=== PATIENT | female | born 1945 | race Caucasian/White ===

== ENCOUNTER 2017-11-22 09:13 | Outpatient (CLI) | payer MEDICARE, OTHER ==
[2017-11-22 10:21] LABS: Bilirubin Negative (Negative); Blood, Urine Negative (Negative); Clarity CLOUDY (Clear); Glucose, Urine (Dipstick) Negative (Negative); Leukocyte Moderate (Negative); Nitrite Negative (Negative); Protein, Urine (Dipstick) Trace mg/dL (Neg-Trace); Specific Gravity, Urine 1.023 (1.002-1.036); Urobilinogen 0.2 mg/dL (0.2-1.0)
[2017-11-22 10:23] LABS: Bacteria/HPF None Seen HPF (None Seen); Pathc Cast-AUWi Flag 1.76 (0-2.49)
[2017-11-22 10:27] LABS: Hyaline Casts/LPF 0-3 HYALINE CAST LPF (0-3 Hyaline); Renal Epithelial None Seen HPF (0-3); Transitional Epithelial NONE SEEN HPF (0-3)
[2017-11-22 10:39] LABS: Anion Gap 12 mmol/L (10-20); BUN (Urea Nitrogen) 14 mg/dL (9.8-20.1); Calc. Creatinine Clearance 0 mL/min (70-130); Calcium 8.4 mg/dL (7.8-10.44); Carbon Dioxide 30 mmol/L (23-31); Chloride 107 mmol/L (98-107); Estimated GFR-MDRD 70; Glucose 106 mg/dL (80-115); Potassium 4.8 mmol/L (3.5-5.1); Sodium 144 mmol/L (136-145)
--- NOTE | 2017-11-22 12:00 | CT ---
CT ABDOMEN AND PELVIS PERFORMED WITH AND WITHOUT CONTRAST ENHANCEMENT: History: Hematuria. History of UTIs. Hysterectomy history. Comparison: CT angio of the chest performed 11-12-12. FINDINGS: The reticular nodularity in the region middle lobe is similar to the prior examination. It is reporte dly a result of a previous microbacterial infection. The liver shows a subtle hypodensity within the dome which appears to represent a cyst, it is stable. The spleen shows some cortical scarring. Pancreas and gallbladder regions are unremarkable. Right and left adrenal glands and right and left kidneys are normal in size. There are no renal calcu li identified. No obstruction or mass. There is no significant periaortic or mesenteric adenopathy. CT OF PELVIS PERFORMED WITH CONTRAST ENHANCEMENT: The appendix region is unremarkable. Sigmoid diverticulosis is seen. Hysterectomy changes are seen. T he bladder is not fully distended. No filling defects are seen. No pelvic lymphadenopathy. IMPRESSION: 1. No evidence of renal calculi or mass. 2. Scarring in the right middle lobe. 3. Sigmoid diverticulosis. POS: [facility]
[2017-11-22] MEDS ORDERED: Iopamidol 370 76% 100 ML VIAL ONE (16:53)
== END 2017-11-22 09:14 | disposition home or self-care (01) ==
LOC: CT 09:13
PROVIDERS: ATTEND Urology
DX: Z51.81 Encounter for therapeutic drug level monitoring (principal); R31.0 Gross hematuria; Z87.448 Personal history of other diseases of urinary system; Z87.440 Personal history of urinary (tract) infections; Z79.01 Long term (current) use of anticoagulants
CPT/HCPCS: 36415; 74178; 80048; 81001; 87077; 87086; 88112

== ENCOUNTER 2018-06-21 05:42 | Inpatient (IN) | payer MEDICARE, OTHER ==
[2018-06-20 13:03] VITALS: BMI 24.8
--- NOTE | 2018-06-20 19:59 | HP ---
HISTORY OF PRESENT ILLNESS: This is a very pleasant 73-year-old female who reports to our office for 5 years of worsening back pain. The patient states that following her visit with us, she is going to get ISA and physical therapy, which has been helping for some time. She states that the last several months, she has been getting no benefit from injections or therapy, which she had in the past. The patient states that the pain starts in her low back travels across her glute hip and lateral thigh and then down into her anterior tibialis. The patient denies any numbness or tingling in the associated area. She denies any bowel or bladder dysfunction. The patient is taking a blood thinner due to a clot in 2013. Her pain level is an 8/10. She states that she is most comfortable in the afternoons if she walks and she needs to bend forward at her waist to relieve some of the pressure. When walking any length of time, she will lean over on the counter of the shopping cart or she will have to sit down. REVIEW OF SYSTEMS: Ten point review of systems has been completed and is negative other than stated above in the HPI. PAST MEDICAL HISTORY: Heart murmur, hypertension, lung disease, BEKA, asthma, fibromyalgia, DVT. PAST SURGICAL HISTORY: , heart bypass, elbow, rotator cuff knee, hysterectomy, breast biopsy. FAMILY HISTORY: Father is at age 75. Mother is at age 82 diagnosed with hypertension and heart disease. Siblings are alive and her children are alive. SOCIAL HISTORY: Patient is a nonsmoker, does not drink alcohol or use any other illicit drugs. She lives at home with her spouse. She is retired and they have two children. MEDICATIONS: Flonase, Claritin, ProAir, Premarin, cyanocobalamin, Integra, folic acid, atorvastatin calcium, Xarelto, calcium, TripleFlex, montelukast sodium, multivitamins, ranitidine, alprazolam, Lyrica, temazepam, tramadol, Celexa. ALLERGIES: PNEUMONIA VACCINE, SULFA. PHYSICAL EXAMINATION: GENERAL: Well-appearing, well-nourished, alert. NEUROLOGIC: Mental status, oriented to time, place and person. Normal attention span and concentration. Speech is spontaneous and fluent. Comprehension is intact. Content appropriate. Normal fund of knowledge. Cranial nerves: Pupils equal, round, reactive to light. Extraocular movements intact. Hearing intact. Motor: Muscle strength normal in lower extremities. Muscle tone and bulk normal in lower extremities, 5/5 bilateral strength in IP, KE, KF, DF, PF, EHL, no radiculopathy, negative SLR bilateral, rotation of bilateral hips normal. Tender to palpation at L4 and L5. Deep tendon reflexes 2+ bilaterally in the patella and ankle. Sensory to light touch intact. Gait and station sit to stand, slow normal gait. RESPIRATIONS: Normal work of breathing room air. SKIN: No rashes or lesions on exposed skin. PSYCHIATRIC: Normal mood and affect. IMAGING: MRI spondylolisthesis at L4-L5. ASSESSMENT AND PLAN: Spondylolisthesis of the lumbar region without myelopathy. Dr. Walker has offered a Lami [id number]. The patient will stop Xarelto one week prior to surgery. We have discussed the indications, risks, benefits, and alternatives of the expected result from surgery. The risks discussed included, but were not limited to bleeding, infection, CSF leak, nerve damage, weakness, incontinence, tonic clonic injury, arachnoiditis, paralysis, ventilator dependence, wheelchair dependence, loss of vision, hardware misplacement, cardiopulmonary complications of anesthesia or , long-term complications discussed included, but were not limited to degradation of surrounding disks and the need for further surgery. The patient states that she understands the risks and is willing to proceed with surgery. TISHA
[2018-06-21] MEDS ORDERED: Thrombin 5000 UNITS/5 ML VIAL ONE (06:31)
[2018-06-21] MEDS ORDERED: Sodium Chloride 0.9% 10 ML ONE (06:31)
[2018-06-21] MEDS ORDERED: Bupivacaine HCl 0.5%/Epinephrine 1:200,000/PF 30 ml Vial ONE (06:31)
[2018-06-21 06:38] LABS: Hemoglobin 13.5 g/dL (12.0-16.0); Mean Corpuscular HGB CONC 33.5 g/dL (32.0-36.0); Mean Corpuscular Hemoglobin 31.3 pg (27.0-31.0); Mean Corpuscular Volume 93.3 fL (78.0-98.0); Mean Platelet Volume 9.6 fL (7.4-10.4); Platelet Count 205 thou/uL (130-400); RBC Distribution Width 12.1 % (11.5-14.5); Red Blood Cell (RBC) Count 4.33 mill/uL (4.20-5.40); White Blood Cell (WBC) Count 5.8 thou/uL (4.8-10.8)
[2018-06-21] MEDS ORDERED: CEFAZOLIN/Water 2 GM/20 ML SYRINGE ONE (06:38)
[2018-06-21] MEDS ORDERED: Midazolam HCl 2 mg/2 ml Vial ONE (06:52)
[2018-06-21] MEDS ORDERED: Fentanyl 100 MCG/2 ML VIAL ONE ×3 (06:52→13:43)
[2018-06-21 06:53] LABS: Anion Gap 13 mmol/L (10-20); BUN (Urea Nitrogen) 11 mg/dL (9.8-20.1); Calc. Creatinine Clearance 61 mL/min (70-130); Calcium 8.7 mg/dL (7.8-10.44); Carbon Dioxide 21 mmol/L (23-31); Chloride 108 mmol/L (98-107); Estimated GFR-MDRD 69; Glucose 98 mg/dL (83-110); Potassium 3.4 mmol/L (3.5-5.1); Sodium 139 mmol/L (136-145)
[2018-06-21 07:53] LABS: INR-International Normal Ratio 0.9; PTT 29.1 SEC (22.9-36.1); Prothrombin Time 12.3 SEC (12.0-14.7)
[2018-06-21] MEDS ORDERED: Albumin 5% 500 ML ONE (08:41)
[2018-06-21] MEDS ORDERED: PHENYLEPHRINE-NS 100 MCG/ML 10 ML SYRINGE ONE (08:55)
[2018-06-21] MEDS ORDERED: Phenylephrine HCL 10 MG/ML VIAL ONE (09:19)
[2018-06-21] MEDS ORDERED: Rocuronium Bromide 50 MG/5 ML VIAL ONE (09:37)
[2018-06-21] MEDS ORDERED: HYDROmorphone 2 MG/ML VIAL ONE (10:55)
[2018-06-21] MEDS ORDERED: diphenhydrAMINE 25 MG CAP PO PRN (11:14)
[2018-06-21] MEDS ORDERED: Milk Of Magnesia 30 ML UDCUP PO PRN (11:14)
[2018-06-21] MEDS ORDERED: tiZANidine HCl 4 MG TAB PO PRN (11:14)
[2018-06-21] MEDS ORDERED: Acetaminophen 325 MG TAB PO PRN (11:14)
[2018-06-21] MEDS ORDERED: Fleet Enema 133 ML BOT PR PRN (11:14)
[2018-06-21] MEDS ORDERED: Acetaminophen 650 MG Suppository PR PRN (11:14)
[2018-06-21] MEDS ORDERED: Zolpidem Tartrate 5 MG TAB PO PRN (11:14)
[2018-06-21] MEDS ORDERED: Promethazine HCl 25 MG/ML VIAL IM PRN ×2 (11:14→11:25)
[2018-06-21] MEDS ORDERED: Acetaminophen/Codeine 30-300mg Tablet PO PRN (11:14)
[2018-06-21] MEDS ORDERED: Bisacodyl 10 MG SUPP PR PRN (11:14)
[2018-06-21] MEDS ORDERED: diphenhydrAMINE 50 MG/ML VIAL IVP PRN (11:14)
[2018-06-21] MEDS ORDERED: Mag-Al 1200 mg/1200 mg/30 ML UDCUP PO PRN (11:14)
[2018-06-21] MEDS ORDERED: Ondansetron HCl/PF 4 MG/2 ML Vial IVP PRN ×2 (11:14→11:25)
[2018-06-21] MEDS ORDERED: PROVENTIL INHALER 6.7 G (200 INHALATIONS) INH PRN (11:19)
[2018-06-21] MEDS ORDERED: traMADol HCl 50 MG TAB PO PRN (11:19)
[2018-06-21] MEDS ORDERED: Promethazine HCl 25 MG/ML VIAL SLOW IVP PRN (11:25)
[2018-06-21] MEDS ORDERED: HYDROmorphone 2 MG/ML VIAL SLOW IVP PRN (11:25)
[2018-06-21] MEDS ORDERED: Cyanocobalamin 1000 MCG/ML VIAL IM SCH (11:30)
[2018-06-21] MEDS ORDERED: Morphine 4 MG/ML VIAL SLOW IVP PRN (12:15)
--- NOTE | 2018-06-21 12:16 | OP ---
DATE OF PROCEDURE: 06/21/2018 SURGEON: Sheryl Walker M.D. ASSET ANALYST: Dolly Lee PA-C. PREOPERATIVE INDICATION: Treat pain, prevent neurological deterioration. PREOPERATIVE DIAGNOSES: L4-L5 spondylolisthesis with lateral recess stenosis, neurogenic claudicatio n and foraminal stenosis and radiculopathy. POSTOPERATIVE DIAGNOSES: L4-L5 spondylolisthesis with lateral recess stenosis, neurogenic claudicati on and foraminal stenosis and radiculopathy. OPERATIVE PROCEDURE: Decompressive laminectomy, medial facetectomy, foraminotomy L4-L5, transforamin al lumbar interbody arthrodesis L4-L5, placement of intervertebral biomechanical device L4-L5, pedicl e screw and aayush instrumentation L4-L5, posterolateral arthrodesis L4-L5, local morselized autograft, morselized allograft. PREOPERATIVE MEDICATION: Ancef 2 grams IV. DRAIN NUMBER: Zero. DRAIN TYPE: None. OPERATIVE DICTATION: The patient was brought to the operating room. General endotracheal anesthesia was induced. The patient was positioned on the Abdullahi frame and a lateral fluoro radiograph was us ed to plan our incision. The lumbar skin was sterilely prepped and draped. We opened with a 10-blad e knife and controlled bleeding with bipolar and monopolar cautery. We used monopolar cautery to dis sect through subcutaneous tissues to the thoracodorsal fascia. We incised that fascia in the midline . We reflected paraspinal muscles off the spinous process and lamina of L4 and L5. A self-retaining retractor was placed and a lateral fluoro radiograph to confirm the levels upon which we were operat ing. We then carried our dissection over the facet joints at L3-4 and L4-5 to identify the transvers e processes of L4 and L5 bilaterally. We irrigated copiously with bacitracin irrigation. We then be lisbeth our decompression. An Adson rongeur and Kerrison rongeurs to fashion a laminectomy at L4-L5. We widened our laminectomy defect until we were flush with L4 and L5 pedicles. We performed wide foraminotomies of the exiting L4 nerve roots and foraminotomies over the traversing and exiting L5 nerve roots. With the decompre ssion secured, we turned our attention to arthrodesis. We performed a complete facetectomy on the left side at L4-L5 to gain access to the intervertebral di sk space through the foramen. We incised the disk space with an 11-blade knife and removed disk cont ents using curettes and rongeurs. We prepared the endplates for grafting with curets and we measured the height at the interspace with a rectangular shaped bone rasp. The interspace at 11 mm tall. A PEEK intervertebral graft was brought into the field measuring 11 mm in height. Laminectomy bone was carefully morcellized on the back table after soft tissue was removed from it. The morselized bone was added to demineralized bone matrix as our fusion substrate. This was packed in the intervertebra l graft and the graft was advanced into the interspace under radiographic guidance to the appropriate depth. We turned our attention to pedicle screw instrumentation. Using bony anatomic landmarks, palpation of the medial portion of the pedicles, and a lateral fluoro radiograph as a guide, we chose entry points for pedicle screws at L4 and L5 bilaterally. We used a high-speed drill to drill our entry points and the bone awl was advanced through the pedicles into th e vertebral body. We tapped each trajectory and then placed 6.5 x 45 mm screws. A 360 degree image set was generated with our isocentric C-arm. This confirmed adequate positioning of all four pedicle screws. We irrigated once again with bacitracin irrigation. We then decorticated the transverse pr ocesses of L4 and L5 bilaterally with a high speed drill. Over the decorticated bone, we left demine ralized bone matrix and morselized autograft as our posterolateral fusion substrate. We then brought rods into the screw heads. We tightened caps over the rods. Before tightening, we compressed acros s the interspace to keep her interbody graft in place. We used a [id number]-[id number] mechanism to ensure adequate tightness. We ensured the foramina were still patent and performed foraminotomies we re needed. We irrigated the center of the wound once again. We treated the paraspinal muscles with local anesthetic. We closed the wound in anatomic layers. We applied a sterile dressing. This was a clean case, no contamination.
[2018-06-21] MEDS: CEFAZOLIN/Water 2 GM/20 ML SYRINGE SLOW IVP SCH (17:23)
[2018-06-21] MEDS: Sodium Chloride 0.9% 1,000 ML IV SCH (17:27)
[2018-06-21] MEDS: Promethazine 25 MG TAB PO PRN ×2 (17:30→21:20)
[2018-06-21] MEDS ORDERED: Temazepam 15 MG CAP PO SCH (21:00)
[2018-06-21] MEDS ORDERED: Famotidine 20 MG TAB PO SCH (21:00)
[2018-06-21] MEDS ORDERED: ALPRAZolam 0.25 MG TAB PO SCH (21:00)
[2018-06-21] MEDS: TROSPIUM 20 MG TABLET PO SCH (21:16)
[2018-06-22] MEDS: CEFAZOLIN/Water 2 GM/20 ML SYRINGE SLOW IVP SCH (00:55)
[2018-06-22] MEDS: Acetaminophen/Codeine 30-300mg Tablet PO PRN ×2 (00:55→03:57)
[2018-06-22] MEDS: Sodium Chloride 0.9% 1,000 ML IV SCH (00:56)
--- NOTE | 2018-06-22 06:50 | PRG ---
DATE OF SERVICE: 06/22/2018 Ms. Gasca is 1 day out from decompression fusion lumbar spine for spondylolisthesis that resulted i n lateral recess stenosis and radiculopathy/neurogenic claudication. Ms. Gasca did well overnight. Her back is sore, but her leg pain is completely gone. Her T-max wa s 99.6. Other vital signs have been stable. Ms. Gasca is moving her legs well. She says the pain in the right leg is gone. I did not appreciate any new difficulties in motor and sensory function. When Ms. Gasca is safe for activities of daily living she can be discharged. We will have the ther apist work with her in log rolling and getting in and out of bed. If she wants to navigate some stai rs with assistance here before going home that is acceptable. If after lunch she feels confident she can manage at home, she can be discharged. Prescriptions are in the chart. Follow up arrangements are being made by our office. We went over wound care and activity restriction.
[2018-06-22] MEDS ORDERED: Calcium Carbonate 600 MG TAB PO SCH (09:00)
[2018-06-22] MEDS ORDERED: MSM PO SCH (09:00)
[2018-06-22] MEDS ORDERED: CHONDROITIN A PO SCH (09:00)
[2018-06-22] MEDS ORDERED: Pregabalin 50 MG CAP PO SCH (09:00)
[2018-06-22] MEDS ORDERED: CeleCOXIB 100 MG CAP PO SCH (09:00)
[2018-06-22] MEDS ORDERED: Calcium Carbonate + Vit D 1 TAB PO SCH (09:00)
[2018-06-22] MEDS ORDERED: Loratadine 10 MG TAB PO SCH (09:00)
[2018-06-22] MEDS ORDERED: Prenatal Vitamin 1 TAB PO SCH (09:00)
[2018-06-22] MEDS ORDERED: Montelukast Sodium 10 mg Tablet PO SCH (09:00)
[2018-06-22] MEDS ORDERED: Fluticasone Propionate Nasal Spray 16 gm Bottle NASAL SCH (09:00)
[2018-06-22] MEDS ORDERED: GLUCOSAMINE PO SCH (09:00)
[2018-06-22] MEDS: TROSPIUM 20 MG TABLET PO SCH (09:14)
[2018-06-22 12:30] VITALS: BP 101/66; TEMP 99
[2018-06-22] MEDS ORDERED: Atorvastatin Calcium 20 MG TAB PO SCH (21:00)
== END 2018-06-22 14:00 | disposition home or self-care (01) | DRG 460 ==
LOC: SURG A 05:42
PROVIDERS: ADMIT Neurological Surgery; ATTEND Neurological Surgery
PROC: 0SG00AJ Fusion of Lumbar Vertebral Joint with Interbody Fusion Device, Posterior Approach, Anterior Column, Open Approach (ICD-10-PCS; principal; 2018-06-21)
PROC: 01NB0ZZ Release Lumbar Nerve, Open Approach (ICD-10-PCS; 2018-06-21)
DX: M43.16 Spondylolisthesis, lumbar region (principal); M48.062 Spinal stenosis, lumbar region with neurogenic claudication; M54.16 Radiculopathy, lumbar region; I10 Essential (primary) hypertension; J45.909 Unspecified asthma, uncomplicated; M79.7 Fibromyalgia; Z86.718 Personal history of other venous thrombosis and embolism; Z79.01 Long term (current) use of anticoagulants; Z88.2 Allergy status to sulfonamides; Z88.7 Allergy status to serum and vaccine
CPT/HCPCS: 36415; 76001; 80048; 85027; 85610; 85730; A4216; C1713; C1768; G8978-GP-CI; G8979-GP-CI; G8980-GP-CI; J0670; J1170; J2250; J2270; J2370; J2405; J3010; J3370; J3490; P9045

== ENCOUNTER 2018-08-16 09:42 | Outpatient (CLI) | payer MEDICARE, OTHER ==
--- NOTE | 2018-08-16 11:22 | RAD ---
LUMBAR SPINE 2 VIEWS: Date: 08/16/18 HISTORY: 73-year-old female with history of back pain, follow-up surgery. M54.5, M43.16. FINDINGS: Postoperative changes are noted at L4-L5 with pedicle screw placement and laminectomy changes. Very m ild anterolisthesis of L4 on L5, but definitely improved from prior 02/07/18 study. No overt new proc ess. IMPRESSION: Status post laminectomy and pedicle screw placement changes with mild anterolisthesis of L4 on L5. POS: [facility]
== END 2018-08-16 09:43 | disposition home or self-care (01) ==
LOC: TBSIIMAG 09:42
PROVIDERS: ATTEND Neurological Surgery
DX: M43.16 Spondylolisthesis, lumbar region (principal); M54.5 Low back pain; Z98.890 Other specified postprocedural states
CPT/HCPCS: 72100

== ENCOUNTER 2019-10-24 09:30 | Outpatient (CLI) | payer MEDICARE, OTHER ==
--- NOTE | 2019-10-24 10:59 | RAD ---
EXAM: 5 views of the temporomandibular joints HISTORY: Crepitus in the temporomandibular joints with jaw opening COMPARISON: None FINDINGS: No joint space narrowing is seen in the temporomandibular joints. No subluxation or disloca tion is seen. IMPRESSION: Unremarkable exam
[2019-10-24 11:46] LABS: #Eosinphils 0.1 thou/uL (0.0-0.7); #Lymphocytes 1.6 thou/uL (1.20-3.40); #Monocytes 0.6 thou/uL (0.11-0.59); #Neutrophils 3.5 thou/uL (1.40-6.50); %Basophils 0.8 % (0.0-1.0); %Eosinophils 2.2 % (0.0-10.0); %Monocytes 9.7 % (0.0-10.0); %Neutrophils 60.3 % (42.0-75.0); Hemoglobin 13.8 g/dL (12.0-16.0); Mean Corpuscular HGB CONC 34.1 g/dL (32.0-36.0); Mean Corpuscular Hemoglobin 31.7 pg (27.0-31.0); Mean Corpuscular Volume 92.9 fL (78.0-98.0); Mean Platelet Volume 9.2 fL (7.4-10.4); Platelet Count 203 thou/uL (130-400); RBC Distribution Width 11.5 % (11.5-14.5); Red Blood Cell (RBC) Count 4.34 mill/uL (4.20-5.40); White Blood Cell (WBC) Count 5.9 thou/uL (4.8-10.8)
[2019-10-24 12:36] LABS: ALT (SGPT) 15 U/L (8-55); AST (SGOT) 21 U/L (5-34); Albumin 4.3 g/dL (3.4-4.8); Alkaline Phosphatase 60 U/L (40-110); Anion Gap 13 mmol/L (10-20); BUN (Urea Nitrogen) 12 mg/dL (9.8-20.1); Bilirubin, Total 2.5 mg/dL (0.2-1.2); Calc. Creatinine Clearance 0 mL/min (70-130); Carbon Dioxide 30 mmol/L (23-31); Chloride 106 mmol/L (98-107); Cholesterol 177 mg/dl (< 200 Desired); Estimated GFR-MDRD 69; Globulin 2.4 g/dL (2.4-3.5); Glucose 89 mg/dL (83-110); HDL Cholesterol 90 mg/dL (>60 Neg Risk); LDL Cholesterol, Calculated 76 mg/dL; Protein, Total 6.7 g/dL (6.0-8.3); Sodium 145 mmol/L (136-145); Triglycerides 54 mg/dL (Less than 150)
[2019-10-24 12:50] LABS: Thyroid Stimulating Hormone 3.5596 uIU/mL (0.35-4.94)
[2019-10-25 16:39] LABS: Bilirubin, Direct 0.8 mg/dL (0.1-0.3); Bilirubin, Total 2.5 mg/dL (0.2-1.2)
== END 2019-10-24 09:31 | disposition home or self-care (01) ==
LOC: SCSRAD 09:30
PROVIDERS: ATTEND Family Medicine
DX: M26.69 Other specified disorders of temporomandibular joint (principal); E80.6 Other disorders of bilirubin metabolism; Z00.00 Encounter for general adult medical examination without abnormal findings; Z13.6 Encounter for screening for cardiovascular disorders; Z51.81 Encounter for therapeutic drug level monitoring; E72.11 Homocystinuria; E03.9 Hypothyroidism, unspecified; I10 Essential (primary) hypertension; N39.0 Urinary tract infection, site not specified; Z79.01 Long term (current) use of anticoagulants
CPT/HCPCS: 36415; 70330; 80053; 80061; 82247; 82607; 82746; 83090; 83921; 84443; 85025

== ENCOUNTER 2022-08-15 08:40 | Inpatient (IN) | payer MEDICARE ==
[2022-08-15] MEDS ORDERED: Ondansetron PF 4 MG/2 ML Vial ONE ×2 (09:10→15:24)
[2022-08-15] MEDS ORDERED: Morphine 4 MG/ML VIAL ONE ×2 (09:10→10:57)
[2022-08-15 09:35] LABS: Hemoglobin 14.6 g/dL (12.0-16.0); Mean Corpuscular HGB CONC 33.3 g/dL (32.0-36.0); Mean Corpuscular Hemoglobin 30.4 pg (27.0-31.0); Mean Corpuscular Volume 91.2 fl (78.0-98.0); Mean Platelet Volume 9.8 fL (7.4-10.4); Platelet Count 164 thou/uL (130-400); RBC Distribution Width 12.1 % (11.5-14.5); Red Blood Cell (RBC) Count 4.79 mill/uL (4.20-5.40); White Blood Cell (WBC) Count 39.6 thou/uL (4.8-10.8)
[2022-08-15 09:40] LABS: ALT (SGPT) 35 U/L (8-55); AST (SGOT) 43 U/L (5-34); Alkaline Phosphatase 73 U/L (40-110); Anion Gap 15 mmol/L (10-20); BUN (Urea Nitrogen) 10 mg/dL (9.8-20.1); Bilirubin, Total 5.2 mg/dL (0.2-1.2); Calc. Creatinine Clearance 0 mL/min (70-130); Calcium 9.6 mg/dL (7.8-10.44); Carbon Dioxide 26 mmol/L (23-31); Chloride 100 mmol/L (98-107); Estimated GFR 73; Globulin 2.9 g/dL (2.4-3.5); Glucose 178 mg/dL (83-110); Lipase Less than 4 U/L (8-78); Protein, Total 6.9 g/dL (5.8-8.1); Sodium 138 mmol/L (136-145)
[2022-08-15 10:18] LABS: Band 8 % (5-11); Lymphocytes 3 % (21-51); MDiff Complete? YES; Monocytes 12 % (0-10); Neutrophil 77 % (42-75); Platelet Morphology Comment Appears Adequate; RBC Morphology Normal
[2022-08-15] MEDS ORDERED: Iopamidol-370 76% 500 ML 1 ML ONE (10:49)
[2022-08-15] MEDS ORDERED: Piperacillin/Tazobactam 4.5 GM VIAL ONE (10:57)
[2022-08-15] MEDS ORDERED: Ondansetron ODT 4 MG TAB PO PRN (11:29)
[2022-08-15] MEDS ORDERED: Ondansetron PF 4 MG/2 ML Vial IVP PRN (11:29)
[2022-08-15] MEDS ORDERED: Acetaminophen 325 MG TAB PO PRN (11:29)
[2022-08-15] MEDS ORDERED: Acetaminophen 650 MG Suppository PR PRN (11:29)
[2022-08-15] MEDS ORDERED: Albuterol Sulfate 2.5 mg/3 ml Neb EZPAP PRN (11:37)
[2022-08-15] MEDS ORDERED: Morphine 4 MG/ML VIAL SLOW IVP PRN (11:38)
[2022-08-15] MEDS ORDERED: Piperacillin/Tazobactam 3.375 GM in Sodium Chloride 0.9% 100 ML IVPB SCH (12:00)
[2022-08-15 12:43] LABS: Lactic Acid 3.7 mmol/L (0.5-2.2)
[2022-08-15] MEDS ORDERED: Iopamidol 30 ML ONE (13:35)
[2022-08-15] MEDS ORDERED: Indomethacin 50 MG SUPP ONE (13:39)
[2022-08-15] MEDS ORDERED: Electrolyte Replacement Protocol 1 EACH FS SCH (14:30)
[2022-08-15 14:43] LABS: SARS-CoV-2 NAA Rapid Test Not Detected (NotDetected)
[2022-08-15] MEDS ORDERED: Electrolyte Replacement Protocol FS PRN (15:00)
[2022-08-15] MEDS ORDERED: NS 0.9% w/ 40 MEQ KCL 1,000 ML IV SCH (15:00)
[2022-08-15] MEDS ORDERED: Famotidine/PF 20 mg/2ml Vial ONE (15:09)
[2022-08-15] MEDS ORDERED: FENTANYL 50 MCG/ML 1 ML VIAL ONE (15:09)
[2022-08-15] MEDS ORDERED: Dexamethasone 20 MG/5 ML VIAL ONE (15:24)
[2022-08-15] MEDS ORDERED: PHENYLEPHRINE-NS 100 MCG/ML 10 ML SYRINGE ONE (15:24)
[2022-08-15] MEDS ORDERED: PROPOFOL 200 MG/20 ML VIAL ONE (15:24)
[2022-08-15] MEDS ORDERED: Rocuronium Bromide 10 MG/ML (10ML VIAL) ONE (15:24)
[2022-08-15] MEDS ORDERED: Glycopyrrolate 0.2 MG/ML 5 ML SYRINGE ONE (15:24)
[2022-08-15] MEDS ORDERED: NEOSTIGMINE 3 MG/3 ML SYR 3 MG/3 ML SYRINGE ONE (15:24)
[2022-08-15] MEDS ORDERED: PACU-Morphine 4MG/ML VIAL SLOW IVP PRN (16:10)
[2022-08-15] MEDS ORDERED: Promethazine HCl 25 MG/ML VIAL IM PRN (16:10)
[2022-08-15] MEDS ORDERED: Promethazine HCl 25 MG/ML VIAL IVPB PRN (16:10)
[2022-08-15] MEDS ORDERED: SUGAMMADEX SODIUM 200 MG/2 ML VIAL ONE (16:50)
[2022-08-15] MEDS: Piperacillin/Tazobactam 3.375 GM in Sodium Chloride 0.9% 100 ML IVPB SCH ×2 (17:58→23:56)
[2022-08-15] MEDS: Potassium Chloride 20 MEQ in Premix Bag 1 BAG IVPB SCH ×2 (19:11→23:18)
[2022-08-16] MEDS: Sodium Chloride 0.9% 1,000 ML IV SCH ×5 (03:33→20:48)
[2022-08-16 04:37] LABS: Hemoglobin 14.6 g/dL (12.0-16.0); Mean Corpuscular HGB CONC 34.4 g/dL (32.0-36.0); Mean Corpuscular Hemoglobin 31.7 pg (27.0-31.0); Mean Corpuscular Volume 92.2 fl (78.0-98.0); Mean Platelet Volume 10.8 fL (7.4-10.4); Platelet Count 123 thou/uL (130-400); RBC Distribution Width 12.2 % (11.5-14.5); Red Blood Cell (RBC) Count 4.61 mill/uL (4.20-5.40); White Blood Cell (WBC) Count 38.7 thou/uL (4.8-10.8)
[2022-08-16 04:38] LABS: Band 10 % (5-11); MDiff Complete? YES; Monocytes 6 % (0-10); Neutrophil 84 % (42-75)
[2022-08-16 05:29] LABS: ALT (SGPT) 83 U/L (8-55); AST (SGOT) 96 U/L (5-34); Albumin 3.1 g/dL (3.4-4.8); Alkaline Phosphatase 84 U/L (40-110); Anion Gap 12 mmol/L (10-20); BUN (Urea Nitrogen) 9 mg/dL (9.8-20.1); Calc. Creatinine Clearance 78 mL/min (70-130); Calcium 8.5 mg/dL (7.8-10.44); Carbon Dioxide 21 mmol/L (23-31); Chloride 110 mmol/L (98-107); Estimated GFR 91; Globulin 2.7 g/dL (2.4-3.5); Glucose 99 mg/dL (83-110); Magnesium 1.6 mg/dL (1.6-2.6); Potassium 4.2 mmol/L (3.5-5.1); Protein, Total 5.8 g/dL (5.8-8.1); Sodium 139 mmol/L (136-145)
[2022-08-16 05:33] LABS: Lactic Acid 1.9 mmol/L (0.5-2.2)
[2022-08-16 05:38] LABS: Lipase 4 U/L (8-78)
[2022-08-16 05:45] LABS: Phosphorus 1.2 mg/dL (2.3-4.7)
[2022-08-16] MEDS ORDERED: Potassium Phosphate 22 MMOL in Sodium Chloride 0.9% 250 ML 250 ML IVPB SCH (06:00)
[2022-08-16] MEDS: Piperacillin/Tazobactam 3.375 GM in Sodium Chloride 0.9% 100 ML IVPB SCH ×3 (06:09→23:05)
[2022-08-16] MEDS ORDERED: Magnesium 2 GM/50 ML(in water) 2 GM in Premix Bag 1 BAG IVPB SCH (08:00)
[2022-08-16 09:42] LABS: INR-International Normal Ratio 1.5; Prothrombin Time 19.1 sec (12.0-14.7)
[2022-08-16] MEDS ORDERED: FENTANYL 50 MCG/ML 1 ML VIAL ONE (09:56)
[2022-08-16] MEDS ORDERED: Lidocaine 2% PF 5 ML VIAL ONE (09:57)
[2022-08-16] MEDS ORDERED: Sodium Bicarbonate 2.5 MEQ/5 ML VIAL ONE (09:57)
[2022-08-16] MEDS ORDERED: Midazolam HCl 2 mg/2 ml Vial ONE (09:57)
[2022-08-17 03:26] VITALS: BMI 27.8
[2022-08-17] MEDS: Sodium Chloride 0.9% 1,000 ML IV SCH ×3 (04:30→19:30)
[2022-08-17] MEDS: Levothyroxine Sodium 88 MCG TAB PO SCH (05:59)
[2022-08-17 06:08] LABS: ALT (SGPT) 49 U/L (8-55); AST (SGOT) 40 U/L (5-34); Albumin 2.8 g/dL (3.4-4.8); Alkaline Phosphatase 95 U/L (40-110); Anion Gap 10 mmol/L (10-20); BUN (Urea Nitrogen) 14 mg/dL (9.8-20.1); Bilirubin, Total 3.4 mg/dL (0.2-1.2); Calc. Creatinine Clearance 83 mL/min (70-130); Carbon Dioxide 22 mmol/L (23-31); Chloride 114 mmol/L (98-107); Estimated GFR 92; Globulin 2.3 g/dL (2.4-3.5); Glucose 80 mg/dL (83-110); Potassium 3.7 mmol/L (3.5-5.1); Protein, Total 5.1 g/dL (5.8-8.1); Sodium 142 mmol/L (136-145)
[2022-08-17 06:10] LABS: #Lymphocytes 0.9 thou/uL (1.20-3.40); #Monocytes 1.6 thou/uL (0.11-0.59); #Neutrophils 15.9 thou/uL (1.40-6.50); %Eosinophils 0.2 % (0.0-10.0); %Lymphocytes 4.6 % (21.0-51.0); %Monocytes 8.6 % (0.0-10.0); %Neutrophils 86.5 % (42.0-75.0); Hemoglobin 11.8 g/dL (12.0-16.0); Mean Corpuscular HGB CONC 33.7 g/dL (32.0-36.0); Mean Corpuscular Hemoglobin 31.3 pg (27.0-31.0); Mean Corpuscular Volume 92.8 fl (78.0-98.0); Mean Platelet Volume 10.1 fL (7.4-10.4); Phosphorus 1.6 mg/dL (2.3-4.7); Platelet Count 152 10x3/uL (130-400); Red Blood Cell (RBC) Count 3.76 mill/uL (4.20-5.40); White Blood Cell (WBC) Count 18.3 10x3/uL (4.8-10.8)
[2022-08-17] MEDS: Piperacillin/Tazobactam 3.375 GM in Sodium Chloride 0.9% 100 ML IVPB SCH ×3 (06:32→23:39)
[2022-08-17] MEDS: Enoxaparin Sodium 40 MG/0.4 ML SYRINGE SC SCH (09:03)
[2022-08-18] MEDS: Sodium Chloride 0.9% 1,000 ML IV SCH ×3 (03:30→19:20)
[2022-08-18 04:03] LABS: #Monocytes 1.2 thou/uL (0.11-0.59); #Neutrophils 11.4 thou/uL (1.40-6.50); %Basophils 0.1 % (0.0-1.0); %Eosinophils 0.3 % (0.0-10.0); %Lymphocytes 7.5 % (21.0-51.0); %Monocytes 8.6 % (0.0-10.0); %Neutrophils 83.5 % (42.0-75.0); Mean Corpuscular HGB CONC 34.5 g/dL (32.0-36.0); Mean Corpuscular Hemoglobin 31.2 pg (27.0-31.0); Mean Corpuscular Volume 90.3 fl (78.0-98.0); Mean Platelet Volume 9.1 fL (7.4-10.4); Platelet Count 178 10x3/uL (130-400); RBC Distribution Width 11.8 % (11.5-14.5); Red Blood Cell (RBC) Count 3.86 mill/uL (4.20-5.40); White Blood Cell (WBC) Count 13.6 10x3/uL (4.8-10.8)
[2022-08-18 04:34] LABS: ALT (SGPT) 36 U/L (8-55); AST (SGOT) 30 U/L (5-34); Albumin 2.6 g/dL (3.4-4.8); Alkaline Phosphatase 79 U/L (40-110); Anion Gap 14 mmol/L (10-20); BUN (Urea Nitrogen) 10 mg/dL (9.8-20.1); Bilirubin, Total 2.7 mg/dL (0.2-1.2); Calc. Creatinine Clearance 92 mL/min (70-130); Calcium 7.9 mg/dL (7.8-10.44); Carbon Dioxide 21 mmol/L (23-31); Chloride 107 mmol/L (98-107); Estimated GFR 94; Globulin 2.5 g/dL (2.4-3.5); Glucose 79 mg/dL (83-110); Potassium 2.7 mmol/L (3.5-5.1); Protein, Total 5.1 g/dL (5.8-8.1); Sodium 139 mmol/L (136-145)
[2022-08-18] MEDS: Piperacillin/Tazobactam 3.375 GM in Sodium Chloride 0.9% 100 ML IVPB SCH ×3 (06:26→23:52)
[2022-08-18] MEDS: Levothyroxine Sodium 88 MCG TAB PO SCH (06:28)
[2022-08-18] MEDS: Enoxaparin Sodium 40 MG/0.4 ML SYRINGE SC SCH (08:27)
[2022-08-18] MEDS ORDERED: Electrolyte Replacement Protocol FS PRN (10:00)
[2022-08-18] MEDS: Potassium Chloride 20 MEQ TAB PO SCH ×2 (10:58→15:24)
[2022-08-18 11:18] LABS: Magnesium 1.9 mg/dL (1.6-2.6)
[2022-08-18] MEDS ORDERED: PHOS-NAK 1 PKT PACK PO SCH (11:30)
[2022-08-18] MEDS ORDERED: Magnesium 2 GM/50 ML(in water) 2 GM in Premix Bag 1 BAG IVPB SCH (12:30)
[2022-08-18] MEDS: PHOS-NAK 1 PKT PACK PO SCH ×2 (12:39→15:25)
[2022-08-19] MEDS: Sodium Chloride 0.9% 1,000 ML IV SCH ×2 (03:42→16:03)
[2022-08-19 03:47] LABS: #Eosinphils 0.1 thou/uL (0.0-0.7); #Lymphocytes 1.1 thou/uL (1.20-3.40); #Monocytes 1.4 thou/uL (0.11-0.59); #Neutrophils 10.1 thou/uL (1.40-6.50); %Basophils 0.1 % (0.0-1.0); %Eosinophils 0.4 % (0.0-10.0); %Lymphocytes 8.7 % (21.0-51.0); %Monocytes 10.7 % (0.0-10.0); %Neutrophils 80.1 % (42.0-75.0); Hemoglobin 11.9 g/dL (12.0-16.0); Mean Corpuscular HGB CONC 34.5 g/dL (32.0-36.0); Mean Corpuscular Hemoglobin 30.9 pg (27.0-31.0); Mean Corpuscular Volume 89.4 fl (78.0-98.0); Mean Platelet Volume 8.4 fL (7.4-10.4); Platelet Count 206 10x3/uL (130-400); RBC Distribution Width 11.6 % (11.5-14.5); Red Blood Cell (RBC) Count 3.86 mill/uL (4.20-5.40); White Blood Cell (WBC) Count 12.6 10x3/uL (4.8-10.8)
[2022-08-19 04:12] LABS: ALT (SGPT) 32 U/L (8-55); AST (SGOT) 32 U/L (5-34); Albumin 2.7 g/dL (3.4-4.8); Alkaline Phosphatase 70 U/L (40-110); Anion Gap 12 mmol/L (10-20); BUN (Urea Nitrogen) 5 mg/dL (9.8-20.1); Calc. Creatinine Clearance 96 mL/min (70-130); Calcium 7.7 mg/dL (7.8-10.44); Carbon Dioxide 21 mmol/L (23-31); Chloride 106 mmol/L (98-107); Estimated GFR 96; Globulin 2.6 g/dL (2.4-3.5); Glucose 124 mg/dL (83-110); Magnesium 1.9 mg/dL (1.6-2.6); Potassium 2.7 mmol/L (3.5-5.1); Protein, Total 5.3 g/dL (5.8-8.1); Sodium 136 mmol/L (136-145)
[2022-08-19 04:30] LABS: Phosphorus 1.3 mg/dL (2.3-4.7)
[2022-08-19] MEDS ORDERED: Magnesium 2 GM/50 ML(in water) 2 GM in Premix Bag 1 BAG IVPB SCH (05:00)
[2022-08-19] MEDS: Potassium Chloride 40 MEQ in Sodium Chloride 0.9% 250 ML 250 ML IVPB SCH ×2 (05:28→10:08)
[2022-08-19] MEDS: Levothyroxine Sodium 88 MCG TAB PO SCH (05:46)
[2022-08-19] MEDS ORDERED: Potassium Phosphate 22 MMOL in Sodium Chloride 0.9% 250 ML 250 ML IVPB SCH (06:00)
[2022-08-19] MEDS: Piperacillin/Tazobactam 3.375 GM in Sodium Chloride 0.9% 100 ML IVPB SCH ×2 (06:58→16:03)
[2022-08-19] MEDS: Enoxaparin Sodium 40 MG/0.4 ML SYRINGE SC SCH (08:15)
[2022-08-19] MEDS ORDERED: PHOS-NAK 1 PKT PACK PO SCH (09:00)
[2022-08-19 11:18] VITALS: BP 180/88
[2022-08-19 11:42] VITALS: TEMP 97.7
[2022-08-19 13:27] LABS: Potassium 3.8 mmol/L (3.5-5.1)
[2022-08-19 15:41] LABS: Anion Gap 13 mmol/L (10-20); BUN (Urea Nitrogen) 5 mg/dL (9.8-20.1); Calc. Creatinine Clearance 94 mL/min (70-130); Calcium 8.1 mg/dL (7.8-10.44); Carbon Dioxide 19 mmol/L (23-31); Chloride 110 mmol/L (98-107); Estimated GFR 95; Glucose 97 mg/dL (83-110); Magnesium 2.4 mg/dL (1.6-2.6); Potassium 4.3 mmol/L (3.5-5.1); Sodium 138 mmol/L (136-145)
== END 2022-08-19 16:30 | disposition home or self-care (01) | DRG 872 ==
LOC: ERS 08:40 → ERHOLD 11:18 → IMCU/EMU 21:57
PROVIDERS: ADMIT Internal Medicine; ATTEND Internal Medicine
PROC: 3E03329 Introduction of Other Anti-infective into Peripheral Vein, Percutaneous Approach (ICD-10-PCS; principal; 2022-08-15)
PROC: 0F798ZZ Dilation of Common Bile Duct, Via Natural or Artificial Opening Endoscopic (ICD-10-PCS; 2022-08-15)
PROC: 0F9430Z Drainage of Gallbladder with Drainage Device, Percutaneous Approach (ICD-10-PCS; 2022-08-18)
PROC: 0F9430Z Drainage of Gallbladder with Drainage Device, Percutaneous Approach (ICD-10-PCS; 2022-08-18)
DX: A41.9 Sepsis, unspecified organism (principal); K80.30 Calculus of bile duct with cholangitis, unspecified, without obstruction; J84.9 Interstitial pulmonary disease, unspecified; Z20.822 Contact with and (suspected) exposure to COVID-19; E78.00 Pure hypercholesterolemia, unspecified; M79.7 Fibromyalgia; F41.9 Anxiety disorder, unspecified; E03.9 Hypothyroidism, unspecified; E87.6 Hypokalemia; J45.20 Mild intermittent asthma, uncomplicated; Z79.51 Long term (current) use of inhaled steroids; Z86.718 Personal history of other venous thrombosis and embolism; Z90.710 Acquired absence of both cervix and uterus; Z88.7 Allergy status to serum and vaccine; Z88.2 Allergy status to sulfonamides; Z88.8 Allergy status to other drugs, medicaments and biological substances; Z79.899 Other long term (current) drug therapy; E83.39 Other disorders of phosphorus metabolism
CPT/HCPCS: 36415; 47010; 71045; 74177; 74330; 76705; 77002; 80053; 83605; 83690; 83735; 83880; 84100; 84439; 84443; 84484; 85025; 85379; 85610; 85730; 87040; 93005; 94760; 96374; 96375; 96376; C1729; J1100; J1610; J1650; J2001; J2250; J2270; J2405; J2543; J2704; J3010; J3475; J3480; J3490; J7050; Q9967; S0028

== ENCOUNTER 2022-08-20 00:12 | Inpatient (IN) | payer MEDICARE ==
[2022-08-20] MEDS ORDERED: Morphine 4 MG/ML VIAL ONE (00:27)
[2022-08-20] MEDS ORDERED: Vancomycin 1 GM/200 ML (FROZEN) BAG ONE (00:28)
[2022-08-20] MEDS ORDERED: Piperacillin/Tazobactam 4.5 GM VIAL ONE (00:30)
[2022-08-20] MEDS ORDERED: Promethazine HCl 25 MG in Sodium Chloride 0.9% 50 ML IVPB SCH (00:45)
[2022-08-20 01:02] LABS: INR-International Normal Ratio 1.1; Prothrombin Time 14.9 sec (12.0-14.7)
[2022-08-20 01:11] LABS: Lipase 35 U/L (8-78); Magnesium 2.5 mg/dL (1.6-2.6)
[2022-08-20 01:15] LABS: Hemoglobin 11.4 g/dL (12.0-16.0); Mean Corpuscular HGB CONC 33.6 g/dL (32.0-36.0); Mean Corpuscular Volume 92.1 fl (78.0-98.0); PTT 19.6 sec (22.9-36.1); Platelet Count 240 10x3/uL (130-400); Red Blood Cell (RBC) Count 3.67 mill/uL (4.20-5.40); White Blood Cell (WBC) Count 21.3 10x3/uL (4.8-10.8)
[2022-08-20 01:17] LABS: Phosphorus 4.4 mg/dL (2.3-4.7)
[2022-08-20 01:18] LABS: ALT (SGPT) 40 U/L (8-55); AST (SGOT) 53 U/L (5-34); Albumin 2.7 g/dL (3.4-4.8); Alkaline Phosphatase 72 U/L (40-110); Anion Gap 24 mmol/L (10-20); BUN (Urea Nitrogen) 5 mg/dL (9.8-20.1); Bilirubin, Total 1.4 mg/dL (0.2-1.2); CRP (Inflammatory) 3.24 mg/dL (= or < 0.5); Calc. Creatinine Clearance 0 mL/min (70-130); Calcium 8.1 mg/dL (7.8-10.44); Carbon Dioxide 13 mmol/L (23-31); Chloride 106 mmol/L (98-107); Estimated GFR 71; Globulin 2.6 g/dL (2.4-3.5); Glucose 155 mg/dL (83-110); Potassium 3.6 mmol/L (3.5-5.1); Protein, Total 5.3 g/dL (5.8-8.1); Sodium 139 mmol/L (136-145)
[2022-08-20 01:32] LABS: Band 1 % (5-11); Burr Cells MODERATE= 6-15 cells (100X) (0-1/hpf); Lymphocytes 13 % (21-51); MDiff Complete? YES; Mean Platelet Volume 8.7 fL (7.4-10.4); Metamyelocyte 1 % (0-0); Monocytes 10 % (0-10); Myelocyte 2 % (0-0); Neutrophil 73 % (42-75); Platelet Morphology Comment Appears Adequate; Toxic Granulation SLIGHT
[2022-08-20] MEDS ORDERED: NOREPINEPHRINE 8 MG/250 ML-D5W 250 ML ONE (01:45)
[2022-08-20 02:30] LABS: SARS-CoV-2 NAA Rapid Test Not Detected (NotDetected)
[2022-08-20] MEDS ORDERED: Acetaminophen 650 MG Suppository PR PRN (04:39)
[2022-08-20 04:43] LABS: Lactic Acid 2.2 mmol/L (0.5-2.2)
[2022-08-20] MEDS ORDERED: NOREPINEPHRINE 8 MG/250 ML-D5W 250 ML IVPB SCH (04:45)
[2022-08-20 05:29] LABS: Troponin I 0.144 ng/mL (< 0.028)
[2022-08-20 06:07] VITALS: BMI 28.2
[2022-08-20] MEDS ORDERED: Sodium Chloride 0.9% 1,000 ML IV SCH (07:00)
[2022-08-20] MEDS ORDERED: Vancomycin HCl 500 MG in Sodium Chloride 0.9% 100 ML IVPB SCH (07:30)
[2022-08-20] MEDS: Sodium Chloride 0.9% 1,000 ML IV SCH ×2 (07:38→17:31)
[2022-08-20 09:07] LABS: Troponin I 0.137 ng/mL (< 0.028)
[2022-08-20] MEDS ORDERED: Electrolyte Replacement Protocol 1 EACH FS SCH (09:30)
[2022-08-20] MEDS ORDERED: Electrolyte Replacement Protocol FS PRN (09:30)
[2022-08-20] MEDS: Piperacillin/Tazobactam 3.375 GM in Sodium Chloride 0.9% 100 ML IVPB SCH ×2 (10:36→17:30)
[2022-08-20] MEDS ORDERED: Iopamidol-370 76% 500 ML 1 ML ONE (10:59)
[2022-08-20] MEDS: Acetaminophen 325 MG TAB PO PRN ×2 (11:15→18:49)
[2022-08-20] MEDS ORDERED: Morphine 4 MG/ML VIAL SLOW IVP PRN (11:20)
[2022-08-20] MEDS ORDERED: VANCOMYCIN 1.25 GM/250 ML BAG 1.25 GM in Premix Bag 1 BAG IVPB SCH (12:00)
[2022-08-20] MEDS ORDERED: Enoxaparin Sodium 40 MG/0.4 ML SYRINGE SC SCH (21:00)
[2022-08-21] MEDS: Piperacillin/Tazobactam 3.375 GM in Sodium Chloride 0.9% 100 ML IVPB SCH ×3 (01:34→17:19)
[2022-08-21 04:05] LABS: #Eosinphils 0.2 thou/uL (0.0-0.7); #Lymphocytes 2.4 thou/uL (1.20-3.40); #Monocytes 2.3 thou/uL (0.11-0.59); #Neutrophils 17.1 thou/uL (1.40-6.50); %Eosinophils 0.9 % (0.0-10.0); %Lymphocytes 10.8 % (21.0-51.0); %Monocytes 10.3 % (0.0-10.0); Mean Corpuscular HGB CONC 33.6 g/dL (32.0-36.0); Mean Corpuscular Hemoglobin 30.8 pg (27.0-31.0); Mean Corpuscular Volume 91.7 fl (78.0-98.0); Mean Platelet Volume 8.3 fL (7.4-10.4); Platelet Count 233 10x3/uL (130-400); RBC Distribution Width 12.5 % (11.5-14.5); Red Blood Cell (RBC) Count 2.28 mill/uL (4.20-5.40); White Blood Cell (WBC) Count 21.9 10x3/uL (4.8-10.8)
[2022-08-21] MEDS: Ondansetron ODT 4 MG TAB PO PRN ×2 (04:13→12:04)
[2022-08-21] MEDS: VANCOMYCIN 1.25 GM/250 ML BAG 1.25 GM in Premix Bag 1 BAG IVPB SCH (04:14)
[2022-08-21 04:22] LABS: Anion Gap 10 mmol/L (10-20); BUN (Urea Nitrogen) 14 mg/dL (9.8-20.1); Calc. Creatinine Clearance 68 mL/min (70-130); Calcium 7.6 mg/dL (7.8-10.44); Carbon Dioxide 21 mmol/L (23-31); Chloride 113 mmol/L (98-107); Estimated GFR 75; Glucose 97 mg/dL (83-110); Potassium 3.3 mmol/L (3.5-5.1); Sodium 141 mmol/L (136-145)
[2022-08-21] MEDS: Sodium Chloride 0.9% 1,000 ML IV SCH (04:23)
[2022-08-21] MEDS ORDERED: Potassium Bicarbonate/Cit Ac 20 MEQ TAB PO SCH (04:45)
[2022-08-21 05:43] LABS: Magnesium 1.8 mg/dL (1.6-2.6)
[2022-08-21 07:26] LABS: Hemoglobin 7.2 g/dL (12.0-16.0); Mean Corpuscular HGB CONC 34.3 g/dL (32.0-36.0); Mean Corpuscular Hemoglobin 31.9 pg (27.0-31.0); Mean Platelet Volume 8.2 fL (7.4-10.4); Platelet Count 242 10x3/uL (130-400); RBC Distribution Width 12.7 % (11.5-14.5); Red Blood Cell (RBC) Count 2.27 mill/uL (4.20-5.40)
[2022-08-21 08:12] LABS: Band 3 % (5-11); Lymphocytes 15 % (21-51); MDiff Complete? YES; Metamyelocyte 1 % (0-0); Microcytosis SLIGHT = 6-15 cells (100X) (0-5/hpf); Monocytes 8 % (0-10); Neutrophil 70 % (42-75); Platelet Morphology Comment Appears Adequate; Reactive Lymphocytes 3 % (0-10)
[2022-08-21] MEDS ORDERED: Magnesium 2 GM/50 ML(in water) 2 GM in Premix Bag 1 BAG IVPB SCH (09:00)
[2022-08-21 09:03] LABS: Potassium 3.4 mmol/L (3.5-5.1)
[2022-08-21] MEDS ORDERED: Iopamidol-370 76% 500 ML 1 ML ONE (09:34)
[2022-08-21] MEDS ORDERED: Potassium Chloride 40 MEQ in Premix Bag 1 BAG IVPB SCH (09:45)
[2022-08-21] MEDS ORDERED: Furosemide 40 MG/4 ML VIAL SLOW IVP SCH (13:00)
[2022-08-21 16:19] LABS: Potassium 3.6 mmol/L (3.5-5.1)
[2022-08-21] MEDS: Temazepam 15 MG CAP PO SCH (20:51)
[2022-08-22] MEDS: Piperacillin/Tazobactam 3.375 GM in Sodium Chloride 0.9% 100 ML IVPB SCH ×3 (01:16→17:37)
[2022-08-22] MEDS: VANCOMYCIN 1.25 GM/250 ML BAG 1.25 GM in Premix Bag 1 BAG IVPB SCH (02:45)
[2022-08-22 04:11] LABS: #Eosinphils 0.5 thou/uL (0.0-0.7); #Lymphocytes 2.2 thou/uL (1.20-3.40); #Monocytes 2.2 thou/uL (0.11-0.59); #Neutrophils 13.5 thou/uL (1.40-6.50); %Basophils 0.1 % (0.0-1.0); %Eosinophils 2.8 % (0.0-10.0); %Lymphocytes 11.9 % (21.0-51.0); %Neutrophils 73.3 % (42.0-75.0); Hemoglobin 6.5 g/dL (12.0-16.0); Mean Corpuscular HGB CONC 35.1 g/dL (32.0-36.0); Mean Corpuscular Hemoglobin 32.3 pg (27.0-31.0); Mean Corpuscular Volume 92.1 fl (78.0-98.0); Mean Platelet Volume 7.8 fL (7.4-10.4); Platelet Count 246 10x3/uL (130-400); White Blood Cell (WBC) Count 18.5 10x3/uL (4.8-10.8)
[2022-08-22] MEDS: Ondansetron ODT 4 MG TAB PO PRN (04:11)
[2022-08-22 04:39] LABS: Anion Gap 10 mmol/L (10-20); BUN (Urea Nitrogen) 8 mg/dL (9.8-20.1); Calc. Creatinine Clearance 79 mL/min (70-130); Calcium 7.4 mg/dL (7.8-10.44); Carbon Dioxide 25 mmol/L (23-31); Chloride 109 mmol/L (98-107); Estimated GFR 87; Glucose 116 mg/dL (83-110); Magnesium 1.8 mg/dL (1.6-2.6); Potassium 2.9 mmol/L (3.5-5.1); Sodium 141 mmol/L (136-145)
[2022-08-22] MEDS: Furosemide 40 MG/4 ML VIAL SLOW IVP SCH (06:14)
[2022-08-22] MEDS ORDERED: Magnesium 2 GM/50 ML(in water) 2 GM in Premix Bag 1 BAG IVPB SCH (06:30)
[2022-08-22] MEDS ORDERED: Potassium Chloride 40 MEQ in Premix Bag 1 BAG IVPB SCH (06:30)
[2022-08-22] MEDS ORDERED: Pantoprazole 40 MG VIAL IVP SCH (11:00)
[2022-08-22 13:34] LABS: Hemoglobin 8.9 g/dL (12.0-16.0); Platelet Count 265 10x3/uL (130-400)
[2022-08-22 13:57] LABS: Potassium 2.8 mmol/L (3.5-5.1)
[2022-08-22] MEDS: Temazepam 15 MG CAP PO SCH (20:53)
[2022-08-22] MEDS: Pantoprazole 40 MG VIAL IVP SCH (20:53)
[2022-08-22] MEDS: Ondansetron PF 4 MG/2 ML Vial IVP PRN (20:54)
[2022-08-22 21:00] LABS: Potassium 2.8 mmol/L (3.5-5.1)
[2022-08-22] MEDS: Potassium Chloride 40 MEQ in Premix Bag 1 BAG IVPB SCH (22:29)
[2022-08-23] MEDS: Piperacillin/Tazobactam 3.375 GM in Sodium Chloride 0.9% 100 ML IVPB SCH ×3 (00:31→17:21)
[2022-08-23] MEDS: Potassium Chloride 40 MEQ in Premix Bag 1 BAG IVPB SCH (02:33)
[2022-08-23] MEDS: Furosemide 40 MG/4 ML VIAL SLOW IVP SCH (05:01)
[2022-08-23 05:45] LABS: Anion Gap 10 mmol/L (10-20); BUN (Urea Nitrogen) 5 mg/dL (9.8-20.1); Calc. Creatinine Clearance 79 mL/min (70-130); Calcium 7.8 mg/dL (7.8-10.44); Carbon Dioxide 30 mmol/L (23-31); Chloride 106 mmol/L (98-107); Estimated GFR 87; Glucose 131 mg/dL (83-110); Magnesium 1.8 mg/dL (1.6-2.6); Potassium 3.8 mmol/L (3.5-5.1); Sodium 142 mmol/L (136-145)
[2022-08-23 06:16] LABS: Phosphorus 1.5 mg/dL (2.3-4.7)
[2022-08-23 06:27] LABS: Band 1 % (5-11); Hemoglobin 8.6 g/dL (12.0-16.0); Hypochromia SLIGHT = 6-15 cells (100X) (0-5/hpf); Lymphocytes 12 % (21-51); MDiff Complete? YES; Mean Corpuscular HGB CONC 34.5 g/dL (32.0-36.0); Mean Corpuscular Hemoglobin 31.8 pg (27.0-31.0); Mean Corpuscular Volume 92.2 fl (78.0-98.0); Mean Platelet Volume 7.9 fL (7.4-10.4); Monocytes 9 % (0-10); Neutrophil 78 % (42-75); Platelet Count 278 10x3/uL (130-400); Platelet Morphology Comment Appears Adequate; RBC Distribution Width 13.4 % (11.5-14.5)
[2022-08-23] MEDS ORDERED: Potassium Phosphate 22 MMOL in Sodium Chloride 0.9% 250 ML 250 ML IVPB SCH (06:30)
[2022-08-23] MEDS: Pantoprazole 40 MG VIAL IVP SCH ×2 (08:21→20:04)
[2022-08-23] MEDS ORDERED: Magnesium 2 GM/50 ML(in water) 2 GM in Premix Bag 1 BAG IVPB SCH (11:00)
[2022-08-23] MEDS: Temazepam 15 MG CAP PO SCH (20:02)
[2022-08-24] MEDS: Piperacillin/Tazobactam 3.375 GM in Sodium Chloride 0.9% 100 ML IVPB SCH ×3 (00:39→16:29)
[2022-08-24] MEDS: Ondansetron PF 4 MG/2 ML Vial IVP PRN ×2 (00:44→08:30)
[2022-08-24] MEDS ORDERED: hydrALAZINE 25 MG TAB PO SCH (06:00)
[2022-08-24 07:00] LABS: #Eosinphils 0.4 thou/uL (0.0-0.7); #Lymphocytes 1.9 thou/uL (1.20-3.40); #Monocytes 1.7 thou/uL (0.11-0.59); %Basophils 0.2 % (0.0-1.0); %Eosinophils 2.3 % (0.0-10.0); %Lymphocytes 10.2 % (21.0-51.0); %Monocytes 8.7 % (0.0-10.0); %Neutrophils 78.6 % (42.0-75.0); Mean Corpuscular HGB CONC 33.7 g/dL (32.0-36.0); Mean Corpuscular Hemoglobin 31.3 pg (27.0-31.0); Mean Platelet Volume 7.9 fL (7.4-10.4); Platelet Count 302 10x3/uL (130-400); RBC Distribution Width 13.7 % (11.5-14.5); Red Blood Cell (RBC) Count 2.88 mill/uL (4.20-5.40); White Blood Cell (WBC) Count 19.1 10x3/uL (4.8-10.8)
[2022-08-24 07:56] LABS: Anion Gap 9 mmol/L (10-20); BUN (Urea Nitrogen) 6 mg/dL (9.8-20.1); Calc. Creatinine Clearance 81 mL/min (70-130); Carbon Dioxide 33 mmol/L (23-31); Chloride 101 mmol/L (98-107); Estimated GFR 90; Glucose 100 mg/dL (83-110); Potassium 3.2 mmol/L (3.5-5.1); Sodium 140 mmol/L (136-145)
[2022-08-24 08:18] LABS: Phosphorus 2.5 mg/dL (2.3-4.7)
[2022-08-24] MEDS: Pantoprazole 40 MG VIAL IVP SCH ×2 (08:24→20:31)
[2022-08-24] MEDS ORDERED: Magnesium 2 GM/50 ML(in water) 2 GM in Premix Bag 1 BAG IVPB SCH (08:45)
[2022-08-24] MEDS: Potassium Chloride 20 MEQ TAB PO SCH ×2 (12:52→13:13)
[2022-08-24] MEDS ORDERED: Potassium Chloride 20 MEQ in Premix Bag 1 BAG IVPB SCH (13:30)
[2022-08-24] MEDS: Ondansetron ODT 4 MG TAB PO PRN (16:29)
[2022-08-24 17:22] LABS: Potassium 3.7 mmol/L (3.5-5.1)
[2022-08-24] MEDS ORDERED: Loratadine 10 MG TAB PO PRN (18:48)
[2022-08-24] MEDS ORDERED: Albuterol 200 PUFF (6.7GM INHALER) INH PRN (18:48)
[2022-08-24] MEDS: Temazepam 15 MG CAP PO SCH (20:31)
[2022-08-24] MEDS: Amitriptyline HCl 25 MG TAB PO SCH (20:32)
[2022-08-24] MEDS: ALPRAZolam 0.25 MG TAB PO SCH (20:32)
[2022-08-25] MEDS: Piperacillin/Tazobactam 3.375 GM in Sodium Chloride 0.9% 100 ML IVPB SCH ×3 (01:35→16:56)
[2022-08-25] MEDS: Ondansetron ODT 4 MG TAB PO PRN ×3 (01:39→20:37)
[2022-08-25] MEDS: Levothyroxine Sodium 88 MCG TAB PO SCH (05:28)
[2022-08-25 05:54] LABS: #Eosinphils 0.3 thou/uL (0.0-0.7); #Lymphocytes 1.6 thou/uL (1.20-3.40); #Monocytes 1.5 thou/uL (0.11-0.59); #Neutrophils 14.3 thou/uL (1.40-6.50); %Basophils 0.1 % (0.0-1.0); %Eosinophils 1.7 % (0.0-10.0); %Lymphocytes 9.2 % (21.0-51.0); %Monocytes 8.2 % (0.0-10.0); %Neutrophils 80.7 % (42.0-75.0); Hemoglobin 8.3 g/dL (12.0-16.0); Mean Corpuscular HGB CONC 33.8 g/dL (32.0-36.0); Mean Corpuscular Hemoglobin 31.7 pg (27.0-31.0); Mean Platelet Volume 7.8 fL (7.4-10.4); Platelet Count 312 10x3/uL (130-400); RBC Distribution Width 13.9 % (11.5-14.5); White Blood Cell (WBC) Count 17.7 10x3/uL (4.8-10.8)
[2022-08-25 06:16] LABS: Anion Gap 7 mmol/L (10-20); BUN (Urea Nitrogen) 7 mg/dL (9.8-20.1); Calc. Creatinine Clearance 76 mL/min (70-130); Calcium 7.8 mg/dL (7.8-10.44); Carbon Dioxide 34 mmol/L (23-31); Chloride 103 mmol/L (98-107); Estimated GFR 83; Glucose 99 mg/dL (83-110); Magnesium 2.1 mg/dL (1.6-2.6); Potassium 3.3 mmol/L (3.5-5.1); Sodium 141 mmol/L (136-145)
[2022-08-25] MEDS: Potassium Chloride 20 MEQ in Premix Bag 1 BAG IVPB SCH ×2 (07:02→08:44)
[2022-08-25] MEDS: Folic Acid 1 MG TAB PO SCH (08:44)
[2022-08-25] MEDS: Montelukast Sodium 10 mg Tablet PO SCH (08:44)
[2022-08-25] MEDS: Pantoprazole 40 MG VIAL IVP SCH (08:44)
[2022-08-25] MEDS ORDERED: Potassium Chloride 10 MEQ TAB PO SCH (12:30)
[2022-08-25] MEDS ORDERED: Potassium Chloride 20 MEQ TAB PO SCH (12:30)
[2022-08-25] MEDS: Temazepam 15 MG CAP PO SCH (20:37)
[2022-08-25] MEDS: Potassium Chloride 20 MEQ TAB PO SCH ×2 (20:37)
[2022-08-25] MEDS: Amitriptyline HCl 25 MG TAB PO SCH (20:37)
[2022-08-25] MEDS: ALPRAZolam 0.25 MG TAB PO SCH (20:37)
[2022-08-26] MEDS: Piperacillin/Tazobactam 3.375 GM in Sodium Chloride 0.9% 100 ML IVPB SCH ×3 (01:23→16:53)
[2022-08-26] MEDS: Levothyroxine Sodium 88 MCG TAB PO SCH (05:36)
[2022-08-26 06:01] LABS: #Basophils 0.1 thou/uL (0.0-0.2); #Eosinphils 0.5 thou/uL (0.0-0.7); #Lymphocytes 1.4 thou/uL (1.20-3.40); #Monocytes 1.4 thou/uL (0.11-0.59); #Neutrophils 13.9 thou/uL (1.40-6.50); %Basophils 0.3 % (0.0-1.0); %Eosinophils 2.8 % (0.0-10.0); %Lymphocytes 8.2 % (21.0-51.0); %Neutrophils 80.7 % (42.0-75.0); Hemoglobin 9.1 g/dL (12.0-16.0); Mean Corpuscular HGB CONC 33.5 g/dL (32.0-36.0); Mean Corpuscular Hemoglobin 31.9 pg (27.0-31.0); Mean Corpuscular Volume 95.3 fl (78.0-98.0); Mean Platelet Volume 7.7 fL (7.4-10.4); Platelet Count 355 10x3/uL (130-400); Red Blood Cell (RBC) Count 2.87 mill/uL (4.20-5.40); White Blood Cell (WBC) Count 17.2 10x3/uL (4.8-10.8)
[2022-08-26] MEDS: Ondansetron ODT 4 MG TAB PO PRN ×2 (08:03→16:54)
[2022-08-26] MEDS: Montelukast Sodium 10 mg Tablet PO SCH (08:04)
[2022-08-26] MEDS: Folic Acid 1 MG TAB PO SCH (08:04)
[2022-08-26] MEDS: Potassium Chloride 20 MEQ TAB PO SCH ×3 (08:04→19:48)
[2022-08-26] MEDS: Temazepam 15 MG CAP PO SCH (19:47)
[2022-08-26] MEDS: ALPRAZolam 0.25 MG TAB PO SCH (19:47)
[2022-08-26] MEDS: Amitriptyline HCl 25 MG TAB PO SCH (19:48)
[2022-08-27] MEDS: Piperacillin/Tazobactam 3.375 GM in Sodium Chloride 0.9% 100 ML IVPB SCH ×2 (00:47→08:22)
[2022-08-27 03:34] LABS: #Basophils 0.1 thou/uL (0.0-0.2); #Eosinphils 0.5 thou/uL (0.0-0.7); #Lymphocytes 1.3 thou/uL (1.20-3.40); #Monocytes 1.3 thou/uL (0.11-0.59); #Neutrophils 11.6 thou/uL (1.40-6.50); %Basophils 0.4 % (0.0-1.0); %Eosinophils 3.2 % (0.0-10.0); %Lymphocytes 8.7 % (21.0-51.0); %Neutrophils 78.8 % (42.0-75.0); Hemoglobin 9.4 g/dL (12.0-16.0); Mean Corpuscular HGB CONC 32.4 g/dL (32.0-36.0); Mean Corpuscular Hemoglobin 31.4 pg (27.0-31.0); Mean Platelet Volume 7.7 fL (7.4-10.4); Platelet Count 371 10x3/uL (130-400); RBC Distribution Width 16.2 % (11.5-14.5); Red Blood Cell (RBC) Count 2.98 mill/uL (4.20-5.40); White Blood Cell (WBC) Count 14.7 10x3/uL (4.8-10.8)
[2022-08-27 03:56] LABS: ALT (SGPT) 14 U/L (8-55); AST (SGOT) 22 U/L (5-34); Albumin 2.7 g/dL (3.4-4.8); Alkaline Phosphatase 57 U/L (40-110); Anion Gap 11 mmol/L (10-20); BUN (Urea Nitrogen) 5 mg/dL (9.8-20.1); Bilirubin, Total 1.8 mg/dL (0.2-1.2); Calc. Creatinine Clearance 74 mL/min (70-130); Calcium 8.4 mg/dL (7.8-10.44); Carbon Dioxide 29 mmol/L (23-31); Chloride 103 mmol/L (98-107); Estimated GFR 80; Globulin 2.8 g/dL (2.4-3.5); Glucose 88 mg/dL (83-110); Potassium 3.5 mmol/L (3.5-5.1); Protein, Total 5.5 g/dL (5.8-8.1); Sodium 139 mmol/L (136-145)
[2022-08-27] MEDS: Levothyroxine Sodium 88 MCG TAB PO SCH (05:28)
[2022-08-27] MEDS: Ondansetron ODT 4 MG TAB PO PRN ×2 (05:31→11:35)
[2022-08-27] MEDS: Potassium Chloride 20 MEQ TAB PO SCH ×2 (07:51→13:28)
[2022-08-27 08:17] VITALS: BP 159/86; TEMP 98.3
[2022-08-27] MEDS: Montelukast Sodium 10 mg Tablet PO SCH (08:22)
[2022-08-27] MEDS: Folic Acid 1 MG TAB PO SCH (08:22)
[2022-08-27] MEDS ORDERED: Potassium Chloride 20 MEQ TAB PO SCH (13:00)
== END 2022-08-27 18:35 | disposition home or self-care (01) | DRG 919 ==
LOC: ERS 00:12 → CCU 04:08 → T4-A 08-23 11:33
PROVIDERS: ADMIT Student in an Organized Health Care Education/Training Program; ATTEND Hospitalist
PROC: 05HM33Z Insertion of Infusion Device into Right Internal Jugular Vein, Percutaneous Approach (ICD-10-PCS; 2022-08-20)
PROC: B543ZZA Ultrasonography of Right Jugular Veins, Guidance (ICD-10-PCS; 2022-08-20)
PROC: 3E03329 Introduction of Other Anti-infective into Peripheral Vein, Percutaneous Approach (ICD-10-PCS; 2022-08-20)
PROC: 3E043XZ Introduction of Vasopressor into Central Vein, Percutaneous Approach (ICD-10-PCS; 2022-08-20)
PROC: 30233N1 Transfusion of Nonautologous Red Blood Cells into Peripheral Vein, Percutaneous Approach (ICD-10-PCS; principal; 2022-08-22)
DX: T85.79XA Infection and inflammatory reaction due to other internal prosthetic devices, implants and grafts, initial encounter (principal); A41.9 Sepsis, unspecified organism; R65.21 Severe sepsis with septic shock; I21.A1 Myocardial infarction type 2; G93.41 Metabolic encephalopathy; J96.01 Acute respiratory failure with hypoxia; E89.820 Postprocedural hematoma of an endocrine system organ or structure following an endocrine system procedure; D62 Acute posthemorrhagic anemia; K83.09 Other cholangitis; K81.0 Acute cholecystitis; J90 Pleural effusion, not elsewhere classified; J98.11 Atelectasis; Z20.822 Contact with and (suspected) exposure to COVID-19; K76.89 Other specified diseases of liver; E87.6 Hypokalemia; E83.39 Other disorders of phosphorus metabolism; J45.20 Mild intermittent asthma, uncomplicated; R74.01 Elevation of levels of liver transaminase levels; E83.42 Hypomagnesemia; F41.9 Anxiety disorder, unspecified; E78.00 Pure hypercholesterolemia, unspecified; M79.7 Fibromyalgia; Z86.718 Personal history of other venous thrombosis and embolism; Z90.710 Acquired absence of both cervix and uterus; Z79.899 Other long term (current) drug therapy; Z91.048 Other nonmedicinal substance allergy status; Z91.018 Allergy to other foods; Z88.7 Allergy status to serum and vaccine; Z88.2 Allergy status to sulfonamides; Z79.890 Hormone replacement therapy
CPT/HCPCS: 36415; 36416; 36430; 36556; 71045; 74177; 80048; 80053; 80202; 82553; 83605; 83690; 83735; 84100; 84132; 84484; 85025; 85610; 85730; 86140; 86850; 86900; 86901; 87040; 87811; 93005; 94760; 96365; 96366; 96375; 99292; C9113; J1940; J2270; J2405; J2543; J2550; J3370; J3370-JW; J3475; J3480; J3490; J7050; P9016; Q0162; Q9967; U0002

== ENCOUNTER 2022-09-26 09:16 | Outpatient (CLI) | payer MEDICARE | END 2022-09-26 09:17 | disposition home or self-care (01) | LOC: RAD 09:16 | PROVIDERS: ATTEND Surgery | DX: K81.9 Cholecystitis, unspecified (principal); J98.6 Disorders of diaphragm; J94.8 Other specified pleural conditions; K82.8 Other specified diseases of gallbladder | CPT/HCPCS: 47531; 74150 ==

== ENCOUNTER 2022-09-26 13:01 | Inpatient (IN) | payer MEDICARE ==
[2022-09-26 16:19] LABS: #Eosinphils 0.1 thou/uL (0.0-0.7); #Lymphocytes 1.1 thou/uL (1.20-3.40); #Monocytes 1.2 thou/uL (0.11-0.59); #Neutrophils 9.5 thou/uL (1.40-6.50); %Eosinophils 0.5 % (0.0-10.0); %Lymphocytes 9.5 % (21.0-51.0); %Monocytes 9.9 % (0.0-10.0); %Neutrophils 80.1 % (42.0-75.0); Hemoglobin 13.5 g/dL (12.0-16.0); Mean Corpuscular HGB CONC 31.7 g/dL (32.0-36.0); Mean Corpuscular Hemoglobin 31.2 pg (27.0-31.0); Mean Corpuscular Volume 98.4 fl (78.0-98.0); Mean Platelet Volume 8.7 fL (7.4-10.4); Platelet Count 313 10x3/uL (130-400); RBC Distribution Width 14.3 % (11.5-14.5); Red Blood Cell (RBC) Count 4.32 mill/uL (4.20-5.40); White Blood Cell (WBC) Count 11.9 10x3/uL (4.8-10.8)
[2022-09-26] MEDS ORDERED: Acetaminophen 325 MG TAB PO PRN (16:38)
[2022-09-26] MEDS ORDERED: Piperacillin/Tazobactam 3.375 GM VIAL ONE (16:42)
[2022-09-26 16:48] LABS: ALT (SGPT) 15 U/L (8-55); AST (SGOT) 32 U/L (5-34); Albumin 2.8 g/dL (3.4-4.8); Alkaline Phosphatase 96 U/L (40-110); Anion Gap 19 mmol/L (10-20); BUN (Urea Nitrogen) 8 mg/dL (9.8-20.1); Calc. Creatinine Clearance 0 mL/min (70-130); Calcium 8.8 mg/dL (7.8-10.44); Carbon Dioxide 22 mmol/L (23-31); Chloride 100 mmol/L (98-107); Estimated GFR 82; Glucose 108 mg/dL (83-110); Lipase 7 U/L (8-78); Protein, Total 6.8 g/dL (5.8-8.1); Sodium 137 mmol/L (136-145)
[2022-09-26 18:44] VITALS: BMI 25.6
[2022-09-26 21:35] LABS: Lactic Acid 1.5 mmol/L (0.5-2.2)
[2022-09-26] MEDS ORDERED: Amitriptyline HCl 25 MG TAB PO SCH (22:24)
[2022-09-26] MEDS ORDERED: Famotidine 20 MG TAB PO SCH (22:30)
[2022-09-26] MEDS ORDERED: ALPRAZolam 1 MG TAB PO SCH (22:30)
[2022-09-26] MEDS: Amitriptyline HCl 25 MG TAB PO SCH (22:48)
[2022-09-26] MEDS: Pregabalin 50 MG CAP PO SCH (22:48)
[2022-09-27] MEDS: Atorvastatin Calcium 10 MG TAB PO SCH (08:58)
[2022-09-27 10:25] LABS: #Eosinphils 0.1 thou/uL (0.0-0.7); #Lymphocytes 1.2 thou/uL (1.20-3.40); #Monocytes 1.2 thou/uL (0.11-0.59); #Neutrophils 6.7 thou/uL (1.40-6.50); %Basophils 0.1 % (0.0-1.0); %Eosinophils 0.7 % (0.0-10.0); %Monocytes 12.9 % (0.0-10.0); %Neutrophils 73.3 % (42.0-75.0); Hemoglobin 11.7 g/dL (12.0-16.0); Mean Corpuscular HGB CONC 31.6 g/dL (32.0-36.0); Mean Corpuscular Hemoglobin 31.3 pg (27.0-31.0); Mean Platelet Volume 8.2 fL (7.4-10.4); Platelet Count 320 10x3/uL (130-400); RBC Distribution Width 14.1 % (11.5-14.5); Red Blood Cell (RBC) Count 3.73 mill/uL (4.20-5.40); White Blood Cell (WBC) Count 9.2 10x3/uL (4.8-10.8)
[2022-09-27 10:46] LABS: ALT (SGPT) 11 U/L (8-55); AST (SGOT) 18 U/L (5-34); Albumin 2.5 g/dL (3.4-4.8); Alkaline Phosphatase 79 U/L (40-110); Anion Gap 13 mmol/L (10-20); BUN (Urea Nitrogen) 5 mg/dL (9.8-20.1); Bilirubin, Total 1.2 mg/dL (0.2-1.2); Calc. Creatinine Clearance 69 mL/min (70-130); Calcium 8.4 mg/dL (7.8-10.44); Carbon Dioxide 30 mmol/L (23-31); Chloride 103 mmol/L (98-107); Estimated GFR 89; Globulin 3.2 g/dL (2.4-3.5); Glucose 87 mg/dL (83-110); Potassium 3.6 mmol/L (3.5-5.1); Protein, Total 5.7 g/dL (5.8-8.1); Sodium 142 mmol/L (136-145)
[2022-09-27] MEDS ORDERED: Loratadine 10 MG TAB PO PRN (15:15)
[2022-09-27] MEDS: Amitriptyline HCl 25 MG TAB PO SCH ×2 (20:32→21:20)
[2022-09-27] MEDS: tiZANidine HCl 4 MG TAB PO SCH (20:32)
[2022-09-27] MEDS: ALPRAZolam 1 MG TAB PO SCH (20:32)
[2022-09-27] MEDS: Famotidine 20 MG TAB PO SCH (20:33)
[2022-09-27] MEDS: Pregabalin 50 MG CAP PO SCH ×2 (20:33→21:20)
[2022-09-27] MEDS: Lactated Ringer's 1,000 ML IV SCH (20:34)
[2022-09-27] MEDS ORDERED: ALPRAZolam 1 MG TAB PO SCH (21:00)
[2022-09-27] MEDS ORDERED: Pregabalin 50 MG CAP PO SCH (21:00)
[2022-09-27] MEDS ORDERED: Cyanocobalamin 1000 MCG/ML VIAL IM SCH (21:00)
[2022-09-27] MEDS ORDERED: Amitriptyline HCl 25 MG TAB PO SCH (21:00)
[2022-09-27] MEDS ORDERED: Famotidine 20 MG TAB PO SCH (21:00)
[2022-09-27] MEDS: Levothyroxine Sodium 88 MCG TAB PO SCH (21:23)
[2022-09-28 07:23] LABS: #Eosinphils 0.2 thou/uL (0.0-0.7); #Lymphocytes 0.8 thou/uL (1.20-3.40); #Monocytes 1.1 thou/uL (0.11-0.59); #Neutrophils 5.6 thou/uL (1.40-6.50); %Lymphocytes 10.9 % (21.0-51.0); %Monocytes 14.2 % (0.0-10.0); %Neutrophils 72.9 % (42.0-75.0); Hemoglobin 12.2 g/dL (12.0-16.0); Mean Corpuscular HGB CONC 31.9 g/dL (32.0-36.0); Mean Corpuscular Hemoglobin 31.7 pg (27.0-31.0); Mean Corpuscular Volume 99.4 fl (78.0-98.0); Mean Platelet Volume 8.3 fL (7.4-10.4); Platelet Count 286 10x3/uL (130-400); RBC Distribution Width 14.1 % (11.5-14.5); Red Blood Cell (RBC) Count 3.86 mill/uL (4.20-5.40); White Blood Cell (WBC) Count 7.7 10x3/uL (4.8-10.8)
[2022-09-28 07:55] LABS: ALT (SGPT) 12 U/L (8-55); AST (SGOT) 21 U/L (5-34); Albumin 2.5 g/dL (3.4-4.8); Alkaline Phosphatase 80 U/L (40-110); Anion Gap 16 mmol/L (10-20); BUN (Urea Nitrogen) 4 mg/dL (9.8-20.1); Bilirubin, Total 1.1 mg/dL (0.2-1.2); Calc. Creatinine Clearance 75 mL/min (70-130); Calcium 8.7 mg/dL (7.8-10.44); Carbon Dioxide 26 mmol/L (23-31); Chloride 104 mmol/L (98-107); Estimated GFR 92; Globulin 3.5 g/dL (2.4-3.5); Glucose 86 mg/dL (83-110); Potassium 3.6 mmol/L (3.5-5.1); Sodium 142 mmol/L (136-145)
[2022-09-28] MEDS: Atorvastatin Calcium 10 MG TAB PO SCH (08:54)
[2022-09-28] MEDS ORDERED: Fentanyl 250 MCG/5 ML VIAL ONE (13:21)
[2022-09-28] MEDS ORDERED: Bupivacaine HCl 0.5%/Epinephrine 1:200,000/PF 30 ml Vial ONE (13:33)
[2022-09-28] MEDS ORDERED: CEFAZOLIN 2 GM VIAL ONE (13:48)
[2022-09-28] MEDS ORDERED: Sodium Chloride 0.9% 100 ML ONE (13:48)
[2022-09-28] MEDS ORDERED: Naloxone HCl 0.4 mg/ml Vial ONE (14:15)
[2022-09-28] MEDS ORDERED: PHENYLEPHRINE-NS 100 MCG/ML 10 ML SYRINGE ONE (14:15)
[2022-09-28] MEDS ORDERED: Ondansetron PF 4 MG/2 ML Vial ONE (14:15)
[2022-09-28] MEDS ORDERED: Lidocaine 1% PF 5 ML VIAL ONE (14:15)
[2022-09-28] MEDS ORDERED: PROPOFOL 200 MG/20 ML VIAL ONE (14:15)
[2022-09-28] MEDS ORDERED: Rocuronium Bromide 10 MG/ML (10ML VIAL) ONE (14:15)
[2022-09-28] MEDS ORDERED: SUGAMMADEX SODIUM 200 MG/2 ML VIAL ONE (15:03)
[2022-09-28] MEDS ORDERED: Ketorolac Tromethamine 30 MG/ML VIAL IVP PRN (15:18)
[2022-09-28] MEDS ORDERED: traMADol HCl 50 MG TAB PO PRN (15:18)
[2022-09-28] MEDS ORDERED: Promethazine HCl 25 MG/ML VIAL IVPB PRN (15:35)
[2022-09-28] MEDS ORDERED: Promethazine HCl 25 MG/ML VIAL IM PRN (15:35)
[2022-09-28] MEDS ORDERED: PACU-Morphine 4MG/ML VIAL SLOW IVP PRN (15:35)
[2022-09-28] MEDS ORDERED: Metoprolol Tartrate 25 MG TAB PO SCH (21:00)
[2022-09-28 21:36] LABS: Actual Bicarbonate (HCO3a) 25.7 mEq/L (22-28); Base Excess (BEa) 2.2 mEq/L (-2.0 to +3.0); CO2 Tension 36.6 mmHg (35.0-45.0); Calcium, Ionized (arterial) 1.11 mmol/L (1.12-1.30); Carboxyhemoglobin (COHb) 0.6 gm% (0.0-3.0); Hemoglobin (Hb) 14.4 g/dL (12.0-16.0); Potassium - ABG Lab 3.86 mmol/L (3.70-5.30); pH, Arterial 7.47 (7.35-7.45)
[2022-09-28 21:39] LABS: Puncture Site RBA
[2022-09-28] MEDS ORDERED: CEFAZOLIN 2 GM in Sodium Chloride 0.9% 100 ML IVPB SCH (22:00)
[2022-09-28] MEDS: Lactated Ringer's 1,000 ML IV SCH (22:03)
[2022-09-28] MEDS: ALPRAZolam 1 MG TAB PO SCH (22:06)
[2022-09-28] MEDS: tiZANidine HCl 4 MG TAB PO SCH (22:07)
[2022-09-28] MEDS: Amitriptyline HCl 25 MG TAB PO SCH (22:07)
[2022-09-28] MEDS: Enoxaparin Sodium 30 MG/0.3 ML SYRINGE SC SCH (22:08)
[2022-09-28] MEDS: Pregabalin 50 MG CAP PO SCH (22:08)
[2022-09-28] MEDS: Famotidine 20 MG TAB PO SCH (22:08)
[2022-09-29] MEDS ORDERED: NOREPINEPHRINE 8 MG/250 ML-D5W 250 ML ONE (01:13)
[2022-09-29 01:19] LABS: Anion Gap 16 mmol/L (10-20); BUN (Urea Nitrogen) 8 mg/dL (9.8-20.1); Calc. Creatinine Clearance 62 mL/min (70-130); Carbon Dioxide 21 mmol/L (23-31); Chloride 107 mmol/L (98-107); Potassium 4.2 mmol/L (3.5-5.1); Sodium 140 mmol/L (136-145)
[2022-09-29 01:20] LABS: Calcium 7.6 mg/dL (7.8-10.44); Estimated GFR 79; Glucose 117 mg/dL (83-110)
[2022-09-29 01:25] LABS: Lactic Acid 2.2 mmol/L (0.5-2.2)
[2022-09-29 02:15] LABS: Band 14 % (5-11); Hemoglobin 12.3 g/dL (12.0-16.0); Lymphocytes 1 % (21-51); MDiff Complete? YES; Mean Corpuscular HGB CONC 32.4 g/dL (32.0-36.0); Mean Corpuscular Volume 98.9 fl (78.0-98.0); Mean Platelet Volume 8.7 fL (7.4-10.4); Monocytes 3 % (0-10); Neutrophil 82 % (42-75); Platelet Count 239 10x3/uL (130-400); RBC Distribution Width 14.1 % (11.5-14.5); Red Blood Cell (RBC) Count 3.85 mill/uL (4.20-5.40); White Blood Cell (WBC) Count 19.1 10x3/uL (4.8-10.8)
[2022-09-29] MEDS ORDERED: NOREPINEPHRINE 8 MG/250 ML-D5W 250 ML IVPB SCH (02:45)
[2022-09-29] MEDS ORDERED: Piperacillin/Tazobactam 3.375 GM in Sodium Chloride 0.9% 100 ML IVPB SCH (04:00)
[2022-09-29] MEDS ORDERED: Lactated Ringer's 1,000 ML IV SCH (05:30)
[2022-09-29] MEDS: Levothyroxine Sodium 88 MCG TAB PO SCH (06:33)
[2022-09-29 08:10] LABS: ALT (SGPT) 8 U/L (8-55); AST (SGOT) 20 U/L (5-34); Albumin 2.3 g/dL (3.4-4.8); Alkaline Phosphatase 73 U/L (40-110); Anion Gap 18 mmol/L (10-20); BUN (Urea Nitrogen) 9 mg/dL (9.8-20.1); Calc. Creatinine Clearance 53 mL/min (70-130); Calcium 7.7 mg/dL (7.8-10.44); Carbon Dioxide 18 mmol/L (23-31); Chloride 106 mmol/L (98-107); Estimated GFR 73; Globulin 3.2 g/dL (2.4-3.5); Glucose 119 mg/dL (83-110); Potassium 4.1 mmol/L (3.5-5.1); Protein, Total 5.5 g/dL (5.8-8.1); Sodium 138 mmol/L (136-145)
[2022-09-29] MEDS: Piperacillin/Tazobactam 3.375 GM in Sodium Chloride 0.9% 100 ML IVPB SCH ×3 (08:54→23:09)
[2022-09-29] MEDS: Polyethylene Glycol 3350 17 GM Packet PO SCH (08:54)
[2022-09-29] MEDS ORDERED: Metoprolol Tartrate 25 MG TAB PO SCH (09:00)
[2022-09-29 09:03] LABS: Bacteria/HPF None Seen HPF (None Seen); Bilirubin Negative (Negative); Blood, Urine Negative (Negative); CAUTI Indications for Culture Alt mental st,lethar; Clarity Clear (Clear); Glucose, Urine (Dipstick) Normal (Negative); Ketone, Urine 20 mg/dL (Negative); Leukocyte 25 Leu/uL (Negative); Nitrite Negative (Negative); Protein, Urine (Dipstick) 20 mg/dL (Neg-Trace); RBC/HPF 0-3 HPF (0-3); Squamous Epithelial 0-3 HPF (0-3); Urobilinogen Normal mg/dL (Less than 2)
[2022-09-29 09:06] LABS: Specific Gravity, Urine Greater than 1.060 (1.002-1.036); Urine Culture Reflex No No
[2022-09-29] MEDS: Atorvastatin Calcium 10 MG TAB PO SCH ×2 (10:34→20:22)
[2022-09-29] MEDS ORDERED: Iopamidol-370 76% 500 ML 1 ML ONE (10:37)
[2022-09-29 12:18] LABS: #Lymphocytes 1.3 thou/uL (1.20-3.40); #Monocytes 1.2 thou/uL (0.11-0.59); #Neutrophils 15.3 thou/uL (1.40-6.50); %Basophils 0.1 % (0.0-1.0); %Eosinophils 0.2 % (0.0-10.0); %Lymphocytes 7.3 % (21.0-51.0); %Monocytes 6.5 % (0.0-10.0); %Neutrophils 85.9 % (42.0-75.0); Hemoglobin 13.5 g/dL (12.0-16.0); Mean Corpuscular HGB CONC 30.5 g/dL (32.0-36.0); Mean Corpuscular Hemoglobin 31.2 pg (27.0-31.0); Mean Platelet Volume 9.2 fL (7.4-10.4); Platelet Count 304 10x3/uL (130-400); RBC Distribution Width 14.5 % (11.5-14.5); Red Blood Cell (RBC) Count 4.33 mill/uL (4.20-5.40); White Blood Cell (WBC) Count 17.8 10x3/uL (4.8-10.8)
[2022-09-29] MEDS: Enoxaparin Sodium 30 MG/0.3 ML SYRINGE SC SCH (20:10)
[2022-09-29] MEDS: Famotidine 20 MG TAB PO SCH (20:22)
[2022-09-29] MEDS: Pregabalin 50 MG CAP PO SCH (20:22)
[2022-09-29] MEDS: traMADol HCl 50 MG TAB PO PRN (20:23)
[2022-09-30] MEDS: traMADol HCl 50 MG TAB PO PRN (05:01)
[2022-09-30] MEDS: Levothyroxine Sodium 88 MCG TAB PO SCH (05:01)
[2022-09-30] MEDS: Piperacillin/Tazobactam 3.375 GM in Sodium Chloride 0.9% 100 ML IVPB SCH ×3 (09:25→23:45)
[2022-09-30] MEDS: Polyethylene Glycol 3350 17 GM Packet PO SCH (09:26)
[2022-09-30] MEDS: Famotidine 20 MG TAB PO SCH (20:26)
[2022-09-30] MEDS: Atorvastatin Calcium 10 MG TAB PO SCH (20:26)
[2022-09-30] MEDS: Pregabalin 50 MG CAP PO SCH (20:26)
[2022-09-30] MEDS: Enoxaparin Sodium 30 MG/0.3 ML SYRINGE SC SCH (20:27)
[2022-10-01] MEDS: Levothyroxine Sodium 88 MCG TAB PO SCH (05:02)
[2022-10-01] MEDS: Polyethylene Glycol 3350 17 GM Packet PO SCH (07:34)
[2022-10-01] MEDS: Piperacillin/Tazobactam 3.375 GM in Sodium Chloride 0.9% 100 ML IVPB SCH (07:47)
[2022-10-01 09:15] LABS: #Eosinphils 0.2 thou/uL (0.0-0.7); #Lymphocytes 0.9 thou/uL (1.20-3.40); #Neutrophils 8.1 thou/uL (1.40-6.50); %Basophils 0.4 % (0.0-1.0); %Eosinophils 2.3 % (0.0-10.0); %Lymphocytes 8.9 % (21.0-51.0); %Monocytes 9.6 % (0.0-10.0); %Neutrophils 78.9 % (42.0-75.0); Hemoglobin 11.8 g/dL (12.0-16.0); Mean Corpuscular HGB CONC 32.9 g/dL (32.0-36.0); Mean Corpuscular Hemoglobin 32.4 pg (27.0-31.0); Mean Corpuscular Volume 98.2 fl (78.0-98.0); Mean Platelet Volume 8.5 fL (7.4-10.4); Platelet Count 271 10x3/uL (130-400); RBC Distribution Width 14.1 % (11.5-14.5); Red Blood Cell (RBC) Count 3.65 mill/uL (4.20-5.40); White Blood Cell (WBC) Count 10.3 10x3/uL (4.8-10.8)
[2022-10-01 09:29] LABS: ALT (SGPT) Less than 7 U/L (8-55); AST (SGOT) 17 U/L (5-34); Albumin 2.4 g/dL (3.4-4.8); Alkaline Phosphatase 72 U/L (40-110); Anion Gap 13 mmol/L (10-20); BUN (Urea Nitrogen) 6 mg/dL (9.8-20.1); Bilirubin, Total 0.9 mg/dL (0.2-1.2); Calc. Creatinine Clearance 69 mL/min (70-130); Calcium 7.9 mg/dL (7.8-10.44); Carbon Dioxide 27 mmol/L (23-31); Chloride 107 mmol/L (98-107); Estimated GFR 92; Glucose 132 mg/dL (83-110); Potassium 3.7 mmol/L (3.5-5.1); Protein, Total 5.4 g/dL (5.8-8.1); Sodium 143 mmol/L (136-145)
[2022-10-01 10:58] VITALS: BP 165/88; TEMP 98.1
== END 2022-10-01 11:25 | disposition home or self-care (01) | DRG 907 ==
LOC: ERS 13:01 → T4-B 17:50 → OBSVTOIN 09-27 14:20 → CCU 09-29 02:25 → SURG A 09-29 15:07
PROVIDERS: ADMIT Internal Medicine; ATTEND Hospitalist
PROC: 0BDN4ZX Extraction of Right Pleura, Percutaneous Endoscopic Approach, Diagnostic (ICD-10-PCS; principal; 2022-09-28)
PROC: 0W994ZZ Drainage of Right Pleural Cavity, Percutaneous Endoscopic Approach (ICD-10-PCS; 2022-09-28)
PROC: 0FP4X0Z Removal of Drainage Device from Gallbladder, External Approach (ICD-10-PCS; 2022-09-28)
PROC: 3E033XZ Introduction of Vasopressor into Peripheral Vein, Percutaneous Approach (ICD-10-PCS; 2022-09-29)
DX: T85.79XA Infection and inflammatory reaction due to other internal prosthetic devices, implants and grafts, initial encounter (principal); A41.9 Sepsis, unspecified organism; J96.01 Acute respiratory failure with hypoxia; R57.8 Other shock; J90 Pleural effusion, not elsewhere classified; J94.8 Other specified pleural conditions; K81.0 Acute cholecystitis; G93.40 Encephalopathy, unspecified; T85.520A Displacement of bile duct prosthesis, initial encounter; J45.909 Unspecified asthma, uncomplicated; E78.5 Hyperlipidemia, unspecified; M79.7 Fibromyalgia; Z96.651 Presence of right artificial knee joint; F41.9 Anxiety disorder, unspecified; E88.09 Other disorders of plasma-protein metabolism, not elsewhere classified; E78.00 Pure hypercholesterolemia, unspecified; I10 Essential (primary) hypertension; Z20.822 Contact with and (suspected) exposure to COVID-19; Z98.890 Other specified postprocedural states; Z88.8 Allergy status to other drugs, medicaments and biological substances; Z88.2 Allergy status to sulfonamides; Z91.018 Allergy to other foods; Z91.048 Other nonmedicinal substance allergy status; Z86.718 Personal history of other venous thrombosis and embolism; Z90.710 Acquired absence of both cervix and uterus; Z79.899 Other long term (current) drug therapy; Z79.01 Long term (current) use of anticoagulants; Z79.890 Hormone replacement therapy
CPT/HCPCS: 36415; 36600; 70450; 71045; 71275; 72125; 72192; 80053; 81001; 82805; 83605; 83690; 83880; 85025; 87040; 87070; 87205; 88305; 93306; 94760; 96374; G0378; J1642; J1650; J2310; J2405; J2543; J2704; J3010; J3490; J7120; Q9967; U0003; U0005

== ENCOUNTER 2022-10-24 15:08 | Outpatient (CLI) | payer MEDICARE | END 2022-10-24 15:09 | disposition home or self-care (01) | LOC: RAD 15:08 → BICRAD 15:09 | PROVIDERS: ATTEND Thoracic Surgery (Cardiothoracic Vascular Surgery) | DX: J94.8 Other specified pleural conditions (principal) | CPT/HCPCS: 71046 ==

== ENCOUNTER 2023-01-20 10:20 | Outpatient (CLI) | payer MEDICARE | END 2023-01-20 10:21 | disposition home or self-care (01) | LOC: BICRAD 10:20 | DX: J90 Pleural effusion, not elsewhere classified (principal) | CPT/HCPCS: 71046 ==

== ENCOUNTER 2023-08-25 14:32 | Outpatient (CLI) | payer MEDICARE | END 2023-08-25 14:33 | disposition home or self-care (01) | LOC: SCSRAD 14:32 | PROVIDERS: ATTEND Family Medicine | DX: S99.922A Unspecified injury of left foot, initial encounter (principal); S92.352A Displaced fracture of fifth metatarsal bone, left foot, initial encounter for closed fracture ==

== ENCOUNTER 2024-11-04 09:47 | Outpatient (CLI) | payer MEDICARE | END 2024-11-04 09:48 | disposition home or self-care (01) | LOC: SCSRAD 09:47 | PROVIDERS: ATTEND Internal Medicine Rheumatology | DX: M81.0 Age-related osteoporosis without current pathological fracture (principal); M47.814 Spondylosis without myelopathy or radiculopathy, thoracic region | CPT/HCPCS: 72072 ==